=== PATIENT | female | born 1940 | race Caucasian/White ===

== ENCOUNTER → 2016-11-11 | Outpatient (CLI) | payer MEDICARE, BC | LOC: MW.LAB 11:09 | PROVIDERS: ATTEND Obstetrics & Gynecology | DX: C54.9 Malignant neoplasm of corpus uteri, unspecified (principal) | CPT/HCPCS: 36415; 82565; 84520; 86304 ==

== ENCOUNTER → 2016-11-12 | Outpatient (CLI) | payer MEDICARE, BC ==
[~2016-11-12] MED LIST: Iopamidol 755 MG/ML 500 ML Multipack Bottle IVPUSH STA
--- NOTE | 2016-11-13 17:37 | CT ---
EXAM DATE: 11/12/16 PATIENT'S AGE: 76 Patient: DON MCGINNIS Facility: [place], [place] Site . Site : 1940 Study: CT Abdomen/Pelvis W CONT [id number] 12:06:31 PM Ordering Physician: Deandre Puentes Final Report: INDICATION: Follow up of uterine carcinoma. TECHNIQUE: Volumetric helical scanning of the abdomen and pelvis was performed with oral contrast material and 75 cc of Isovue 370 contrast material IV. Coronal and sagittal reconstructions were obtained. COMPARISON: Abdomen/pelvis CT of 08/28/2016. FINDINGS: : Postop changes of total abdominal hysterectomy are again demonstrated. No peritoneal mass or free fluid is evident. The liver is normal in size, shape and attenuation. Post op changes of cholecystectomy are demonstrated. No bile duct dilation is evident. The spleen, adrenal glands and pancreas are within normal limits. The kidneys are unremarkable except for a 1.8 cm right renal parenchymal cyst. No lymphadenopathy is evident. The bowel is unremarkable. No free fluid is evident. The lung bases are clear. The heart is normal in size. IMPRESSION: 1. Post total abdominal hysterectomy. No evidence of recurrent/metastatic disease. 2. Post cholecystectomy. 3. 1.8 cm right renal cyst. Dictated by Steven Bonilla MD @ Nov 13 2016 3:22PM (Electronic Signature) Report Signed by Proxy and Original Signed Document filed in the Medical Record. [facility]
== END ==
LOC: MW.DI 09:20
PROVIDERS: ATTEND Obstetrics & Gynecology
DX: C54.9 Malignant neoplasm of corpus uteri, unspecified (principal); R10.9 Unspecified abdominal pain; Z90.710 Acquired absence of both cervix and uterus; Z90.49 Acquired absence of other specified parts of digestive tract; N28.1 Cyst of kidney, acquired
CPT/HCPCS: 74177; Q9967

== ENCOUNTER → 2016-12-11 | Outpatient (CLI) | payer MEDICARE, BC | LOC: MW.CHGS 08:00 | PROVIDERS: ATTEND Surgery | DX: L72.3 Sebaceous cyst (principal) | CPT/HCPCS: G0463 ==

== ENCOUNTER 2016-12-23 08:55 | Day surgery (SDC) | payer MEDICARE, BC ==
[~2016-12-23 08:55] MED LIST changes: +Clindamycin Phosphate in D5W 300 MG in Premix Bag 1 BAG IV ONE; -Iopamidol 755 MG/ML 500 ML Multipack Bottle IVPUSH STA; +Lactated Ringers 1,000 ML IV SCH; +Sodium Chloride 0.9% 10 ML Syringe FLUSH PRN; +Sodium Chloride 0.9% 2.5 ML Syringe FLUSH PRN
--- NOTE | 2016-12-23 09:25 | PCM.PREANE ---
Preanesthetic Assessment - Anesthesia/Transfusion/Family Hx Anesthesia History: Prior Anesthesia Without Reaction Other Type of Anesthesia Reaction Comment: difficult intubation Family History of Anesthesia Reaction: No Transfusion History: No Prior Transfusion(s) Intubation History: History of Difficulty Intubation - Review of Systems General: No Symptoms Pulmonary: No Symptoms Cardiovascular: No Symptoms Gastrointestinal: No symptoms Neurological: No Symptoms Other: Reports: None - Physical Assessment Height: 1.57 m Weight: 58.06 kg ASA Class: 3 Mental Status: Alert & Oriented x3 Airway Class: Mallampati = 4 Dentition: Reports: Normal Dentition Thyro-Mental Finger Breadths: 2 Mouth Opening Finger Breadths: 2 ROM/Head Extension: Limited/Partial Lungs: Clear to auscultation, Normal respiratory effort Cardiovascular: Regular Rate, Regular Rhythm - Allergies Allergies/Adverse Reactions: Allergies Allergy/AdvReac Type Severity Reaction Status Date / Time Penicillins Allergy Rash Verified 10/09/16 08:34 Sulfa (Sulfonamide Allergy Abdominal Verified 10/09/16 08:33 Antibiotics) Pain Difficult Intubation Allergy Other Uncoded 10/15/16 07:09 - Blood Blood Available: No - Anesthesia Plan Pre-Op Medication Ordered: None Beta Nuris: Atenolol Med Last Dose Date: 12/23/16 Med Last Dose Time: 05:30 - Acknowledgements Anesthesia Type Planned: MAC Pt an Appropriate Candidate for the Planned Anesthesia: Yes Alternatives and Risks of Anesthesia Discussed w Pt/Guardian: Yes Pt/Guardian Understands and Agrees with Anesthesia Plan: Yes PreAnesthesia Questionnaire HEENT History: Reports: Cataract, Hard of hearing, Other (see below) Other HEENT History: rolanda hearing aids, titanium implant to left ear, wears glasses Cardiovascular History: Reports: Heart Failure (with preserved ejection graction HFpEF 02/19, cardiac angiogram 08/21 in [place] was ok per patient), High cholesterol, Hypertension, Other (see below) Other Cardiovascular History: Aortic valve calcification per Dr. 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 (see below) Other OB/BYN History: CA of uterus 2013, chemo, radiation, hysterectomy Musculoskeletal History: Reports: Fracture, Osteoporosis Neurological History: Reports: Neuropathy, peripheral Endocrine/Metabolic History: Reports: None Oncologic (Cancer) History: Reports: Uterine Other Oncologic History: endometrial cancer and also found in 1 lymph node, treated with chemo and radiation - Infectious Disease History Infectious Disease History: Reports: Chicken pox, Measles - Past Surgical History Head Surgeries/Procedures: Reports: None HEENT Surgical History: Reports: Cataract surgery, Tonsillectomy Other HEENT Surgeries/Procedures: left ear surgery with implant Cardiovascular Surgical History: Reports: None Respiratory Surgical History: Reports: None GI Surgical History: Reports: Cholecystectomy, Colonoscopy Female Surgical History: Reports: Hysterectomy Other Musculoskeletal Surgeries/Procedures:: ORIF of left ankle fx. with subsequat hardware removal - SUBSTANCE USE Smoking Status *Q: Never Smoker Second Hand Smoke Exposure: No Recreational Drug Use History: No - HOME MEDS Home Medications: Home Meds Atenolol [Tenormin] 50 mg PO BRK 05/22/14 [History] Calcium Carbonate [Calcium] 1 tab PO BID 05/22/14 [History] Cholecalciferol (Vitamin D3) [Vitamin D] 5,000 units PO DAILY 05/22/14 [History] Denosumab [Prolia] 1 ml INJECT ASDIRECTED 05/22/14 [History] Fluticasone/Salmeterol [Advair 100-50 Diskus] 1 inh INH BID 05/22/14 [History] amLODIPine Besylate [Amlodipine Besylate] 5 mg PO BRK 05/22/14 [History] atorvaSTATin [Lipitor] 40 mg PO BEDTIME 05/22/14 [History] Pyridoxine HCl [Vitamin B-6] 100 mg PO DAILY 02/24/16 [History] Furosemide 20 mg PO DAILY 10/09/16 [History] Lisinopril 10 mg PO DAILY 10/09/16 [History] Potassium Chloride 10 meq PO DAILY 10/09/16 [History] - CURRENT (IN HOUSE) MEDS Current Meds: Current Medications Lactated Ringer's (Ringers, Lactated) 1,000 mls @ 125 mls/hr IV ASDIRECTED LASHAY Sodium Chloride (Saline Flush) 10 ml FLUSH ASDIRECTED PRN PRN Reason: Keep Vein Open Sodium Chloride (Saline Flush) 2.5 ml FLUSH ASDIRECTED PRN PRN Reason: Keep Vein Open Discontinued Medications Clindamycin Phosphate 300 mg/ (Premix) 50 mls @ 150 mls/hr IV ONETIME ONE Stop: 12/21/16 09:55 Clindamycin Phosphate 300 mg/ (Premix) 50 mls @ 150 mls/hr IV ONETIME ONE Stop: 12/23/16 07:49
[2016-12-23] MEDS ORDERED: fentaNYL 100 MCG/2 ML SDV ONE (09:40)
[2016-12-23] MEDS ORDERED: Midazolam 1 MG/ML 2 ML SDV ONE (09:40)
[2016-12-23] MEDS ORDERED: Bupivacaine 0.5% 30 ML SDV ONE (10:37)
[2016-12-23] MEDS ORDERED: Lidocaine 1% 20 ML MDV ONE (10:37)
[2016-12-23] MEDS ORDERED: Octyl 2-Cyanoacrylate 1 Tube ONE (11:16)
--- NOTE | 2016-12-23 11:29 | PCM.OPNOTE ---
- General Post-Op/Procedure Note Date of Surgery/Procedure: 12/23/16 Operative Procedure(s): Right neck mass excision Findings: Right neck mass Pre Op Diagnosis: Right neck mass Post-Op Diagnosis: same Anesthesia Technique: General ET tube Primary Surgeon: Cathy Maxwell Pathology: right neck mass Fluid Replacement, Intraop: 500 Condition: Good
--- NOTE | 2016-12-23 11:53 | PCM48HPAN ---
Post Anesthesia Note - EVALUATION WITHIN 48HRS OF ANESTHETIC Vital Signs in Normal Range: Yes Patient Participated in Evaluation: Yes Respiratory Function Stable: Yes Airway Patent: Yes Cardiovascular Function Stable: Yes Hydration Status Stable: Yes Pain Control Satisfactory: Yes Nausea and Vomiting Control Satisfactory: Yes Mental Status Recovered: Yes - COMMENTS/OBSERVATIONS Free Text/Narrative:: no anesthesia problems. Patient skipped recovery room phase of postoperative care.
[2016-12-23 13:05] VITALS: BP 124/57
--- NOTE | 2016-12-23 20:15 | OR ---
SURGEON: JAYLEN DANG MD DATE OF PROCEDURE: 12/23/2016 PREOPERATIVE DIAGNOSIS: Right neck mass. POSTOPERATIVE DIAGNOSIS: Right neck mass. PROCEDURE PERFORMED: Excision, right neck mass. ANESTHESIA: MAC. FLUIDS: 500 mL crystalloid. ESTIMATED BLOOD LOSS: 2 mL. PATHOLOGY: Right neck mass. FINDINGS: 1.5 x 1.5 cm right neck mass over the mid body portion of the SCM. COMPLICATIONS: None. INDICATIONS: The patient is a 76-year-old female who has had a right neck mass present for many years. She has been told this is a sebaceous cyst as it will become infected, drain, and then refill again. The patient has been bothered by this as it raise along the collar of her shirts and coats. The patient would like to have it removed. The patient and I discussed excision of the right neck mass. We discussed the procedure as well as expected perioperative course. We discussed the risks, including bleeding, infection, and damage to surrounding structures. The patient verbalized understanding and wished to proceed. PROCEDURE IN DETAIL: The patient was brought into the operating room and placed in the beach chair position. A time-out was completed verifying the patient's name, age, date of , allergies, and procedure to be performed. Monitored anesthesia care was induced. The neck and right chest were prepped and draped in the usual standard fashion. The area underneath the mass was then injected with 1% lidocaine plain. An elliptical incision was made along the skin lines around the mass down to the subcutaneous fat. Using electric cautery, I then removed the overlying skin and mass. This was sent to Pathology labeled as right neck mass. Hemostasis was achieved with cautery. The wound was then closed with interrupted 3-0 Vicryl within the subcutaneous tissues and a running 4-0 Monocryl suture along the skin. Dermabond was applied as well as a sterile dressing. Counts were complete and correct at the end of the case. The patient tolerated the procedure well and was taken to PACU in stable condition. RANI CARR /[id number]
== END 2016-12-23 11:58 | disposition home or self-care (01) ==
LOC: MW.SDS 08:55
PROVIDERS: ATTEND Surgery
PROC: 0JB40ZZ Excision of Right Neck Subcutaneous Tissue and Fascia, Open Approach (ICD-10-PCS; principal; 2016-12-23)
DX: L72.0 Epidermal cyst (principal); I11.0 Hypertensive heart disease with heart failure; I50.9 Heart failure, unspecified; J45.909 Unspecified asthma, uncomplicated; K21.9 Gastro-esophageal reflux disease without esophagitis; E78.00 Pure hypercholesterolemia, unspecified; M81.0 Age-related osteoporosis without current pathological fracture; G62.9 Polyneuropathy, unspecified; Z85.42 Personal history of malignant neoplasm of other parts of uterus; Z87.440 Personal history of urinary (tract) infections; Z87.01 Personal history of pneumonia (recurrent); Z92.21 Personal history of antineoplastic chemotherapy; Z92.3 Personal history of irradiation; Z88.0 Allergy status to penicillin; Z88.2 Allergy status to sulfonamides; Z79.51 Long term (current) use of inhaled steroids; Z79.899 Other long term (current) drug therapy; Z98.49 Cataract extraction status, unspecified eye; Z90.49 Acquired absence of other specified parts of digestive tract; Z90.710 Acquired absence of both cervix and uterus; Z90.89 Acquired absence of other organs; Z98.890 Other specified postprocedural states
CPT/HCPCS: 11422; A9270; J2250; J3010; J7120; 00300; 88304

== ENCOUNTER → 2017-01-04 | Outpatient (CLI) | payer MEDICARE, BC | LOC: MW.CHIM 08:00 | PROVIDERS: ATTEND Internal Medicine | DX: I50.30 Unspecified diastolic (congestive) heart failure (principal); I10 Essential (primary) hypertension; E78.00 Pure hypercholesterolemia, unspecified; Z85.42 Personal history of malignant neoplasm of other parts of uterus | CPT/HCPCS: 99214 ==

== ENCOUNTER → 2017-01-26 | Outpatient (CLI) | payer MEDICARE, BC | LOC: MW.CHFP 08:00 | PROVIDERS: ATTEND Nurse Practitioner Family | DX: M81.0 Age-related osteoporosis without current pathological fracture (principal) | CPT/HCPCS: 96372; J0897 ==

== ENCOUNTER 2017-07-13 19:12 | Observation (INO) | payer MEDICARE, BC ==
[2017-07-13] MEDS ORDERED: Sodium Chloride 0.9% 1,000 ML IV ONE (19:34)
[2017-07-13] MEDS ORDERED: Ondansetron 4 MG/2 ML SDV IVPUSH ONE (19:34)
--- NOTE | 2017-07-13 19:44 | EDM.PDOC ---
ED HPI GENERAL MEDICAL PROBLEM - General Chief Complaint: Gastrointestinal Problem Stated Complaint: PT SICK Time Seen by Provider: 07/13/17 19:25 Source of Information: Reports: Patient History Limitations: Reports: No Limitations - History of Present Illness INITIAL COMMENTS - FREE TEXT/NARRATIVE: HISTORY AND PHYSICAL: History of present illness: Patient is a 77-year-old female who presents to the emergency room today via [facility] with complaints of nausea and vomiting. States symptoms started at approximately 4 PM. She reports that she was taking out the trash and she walked back to her recliner she started to feel dizzy and light headed so she sat down. Soon after she became nauseated and went to stand up to walk to the bathroom and felt as if she were going to pass out, and her heart began to race. She did end up vomiting on herself multiple times because whens he tried to stand, she felt she would pass out. She called 911 for assistance at this time. EMS did start an IV and gave her 4 mg of Zofran prior to arrival. Her current complaint is the nausea and dizziness with ambulation. She denies any abdominal pain, diarrhea, dysuria, chest pain, shortness of breath or flank pain. Patient has a past medical history of asthma, hypertension, elevated cholesterol , leaking aortic valve which she sees Dr. Anderson in [place] (last seen May 06, 2017), and uterine cancer which she sees a provider in [place] ( last seen May 18, 2017). Review of systems: As per history of present illness and below otherwise all systems reviewed and negative. Past medical history: As per history of present illness and as reviewed below otherwise noncontributory. Surgical history: As per history of present illness and as reviewed below otherwise noncontributory. Social history: No reported history of drug or alcohol abuse. Family history: As per history of present illness and as reviewed below otherwise noncontributory. Physical exam: Gen.: Nontoxic appearing 77-year-old female. Alert and oriented. Able to speak in full sentences without shortness of breath. HEENT: Atraumatic, normocephalic, pupils reactive, negative for conjunctival pallor or scleral icterus, mucous membranes moist, throat clear, neck supple, nontender, trachea midline. Lungs: Clear to auscultation, breath sounds equal bilaterally, chest nontender. Breathing is easy and even. Heart: S1S2, regular rate and rhythm. Abdomen: Soft, nondistended, nontender. Negative for masses or hepatosplenomegaly. Negative for costovertebral tenderness. Pelvis: Stable nontender. Genitourinary: Deferred. Rectal: Deferred. Extremities: Atraumatic, negative for cords or calf pain. Neurovascular unremarkable. She was able to ambulate with standby assistance to the bathroom without difficulty. Gait was steady. Neuro: Awake, alert, oriented. Cranial nerves II through XII unremarkable. Cerebellum unremarkable. Motor and sensory unremarkable throughout. Exam nonfocal. Reviewed the lab and imaging findings with the patient. Dr. Patel was consulted on this case and is agreeable to admit patient for observation. Patient was made aware and is agreeable to stay overnight. Denies any further questions at this time. Diagnostics: CBC, CMP, troponin, EKG, UA, 1 view chest Therapeutics: IV fluid, Zofran Impression: Pancreatitis Plan: Observation admission to [facility] per Dr. Patel Definitive disposition and diagnosis as appropriate pending reevaluation and review of above. 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 denies any pain Pain Score (Numeric/FACES): 0 - Related Data Allergies Allergy/AdvReac Type Severity Reaction Status Date / Time Penicillins Allergy Rash Verified 07/13/17 19:16 Sulfa (Sulfonamide Allergy Abdominal Verified 07/13/17 19:16 Antibiotics) Pain Difficult Intubation Allergy Other Uncoded 07/13/17 19:16 Home Meds: Home Meds Atenolol [Tenormin] 50 mg PO BRK 05/22/14 [History] Calcium Carbonate [Calcium] 1 tab PO BID 05/22/14 [History] Cholecalciferol (Vitamin D3) [Vitamin D] 5,000 units PO DAILY 05/22/14 [History] Denosumab [Prolia] 1 ml INJECT ASDIRECTED 05/22/14 [History] Fluticasone/Salmeterol [Advair 100-50 Diskus] 1 inh INH BID 05/22/14 [History] amLODIPine Besylate [Amlodipine Besylate] 5 mg PO BRK 05/22/14 [History] atorvaSTATin [Lipitor] 40 mg PO BEDTIME 05/22/14 [History] Pyridoxine HCl [Vitamin B-6] 100 mg PO DAILY 02/24/16 [History] Furosemide 20 mg PO DAILY 10/09/16 [History] Lisinopril 10 mg PO DAILY 10/09/16 [History] Potassium Chloride 10 meq PO DAILY 10/09/16 [History] Past Medical History HEENT History: Reports: Cataract, Hard of Hearing, Other (See Below) Other HEENT History: rolanda hearing aids, titanium implant to left ear, wears glasses Cardiovascular History: Reports: Heart Failure, High Cholesterol, Hypertension, Other (See Below) Other Cardiovascular History: Aortic valve calcification per Dr. 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 (See Below) Other OB/BYN History: CA of uterus 2013, chemo, radiation, hysterectomy Musculoskeletal History: Reports: Fracture, Osteoporosis Neurological History: Reports: Neuropathy, Peripheral Endocrine/Metabolic History: Reports: None Oncologic (Cancer) History: Reports: Uterine Other Oncologic History: endometrial cancer and also found in 1 lymph node, treated with chemo and radiation - Infectious Disease History Infectious Disease History: Reports: Chicken Pox, Measles - Past Surgical History HEENT Surgical History: Reports: Cataract Surgery, Tonsillectomy Social & Family History - Family History Family Medical History: Noncontributory - Tobacco Use Smoking Status *Q: Never Smoker Second Hand Smoke Exposure: No - Caffeine Use Caffeine Use: Reports: None - Recreational Drug Use Recreational Drug Use: No ED ROS GENERAL - Review of Systems Review Of Systems: ROS reveals no pertinent complaints other than HPI. ED EXAM, GI/ABD - Physical Exam Exam: See Below (See dictation) EKG INTERPRETATION EKG Date: 07/13/17 Time: 19:50 Rhythm: NSR Rate (Beats/Min): 70 EKG Interpretation Comments: Reviewed by Dr Russell and myself Course - Vital Signs Last Recorded V/S: Last Vital Signs Temp 36.4 C 07/13/17 19:16 Pulse 84 07/13/17 19:16 Resp 32 H 07/13/17 19:16 BP 123/76 07/13/17 19:16 Pulse Ox 100 07/13/17 19:16 - Orders/Labs/Meds Orders: Active Orders 24 hr Category Date Time Status Admission Status [Patient Status] [ADT] Stat ADT 07/13/17 20:47 Active EKG Documentation Completion [RC] STAT Care 07/13/17 19:36 Active Orthostatic Vital Signs [RC] ASDIRECTED Care 07/13/17 19:49 Active Chest 1V Frontal [CR] Stat Exams 07/13/17 19:36 Taken Head wo Cont [CT] Stat Exams 07/13/17 19:58 Taken UA W/MICROSCOPIC [URIN] Stat Lab 07/13/17 19:34 Uncollected Labs: Laboratory Tests 07/13/17 07/13/17 07/13/17 Range/Units 19:54 19:54 19:54 WBC 8.10 (4.0-11.0) K/uL RBC 3.81 L (4.30-5.90) M/uL Hgb 12.4 (12.0-16.0) g/dL Hct 35.8 L (36.0-46.0) % MCV 94.0 (80.0-98.0) fL MCH 32.5 H (27.0-32.0) pg MCHC 34.6 (31.0-37.0) g/dL RDW Std Deviation 43.1 (28.0-62.0) fl RDW Coeff of Miracle 13 (11.0-15.0) % Plt Count 186 (150-400) K/uL MPV 10.30 (7.40-12.00) fL Neut % (Auto) 80.9 H (48.0-80.0) % Lymph % (Auto) 11.2 L (16.0-40.0) % Preston % (Auto) 6.7 (0.0-15.0) % Eos % (Auto) 1.0 (0.0-7.0) % Baso % (Auto) 0.2 (0.0-1.5) % Neut # (Auto) 6.6 H (1.4-5.7) K/uL Lymph # (Auto) 0.9 (0.6-2.4) K/uL Preston # (Auto) 0.5 (0.0-0.8) K/uL Eos # (Auto) 0.1 (0.0-0.7) K/uL Baso # (Auto) 0.0 (0.0-0.1) K/uL Nucleated RBC % 0.0 /100WBC Nucleated RBCs # 0 K/uL Sodium 142 (136-146) mmol/L Potassium 3.4 L (3.5-5.1) mmol/L Chloride 109 (98-110) mmol/L Carbon Dioxide 22 (21-31) mmol/L BUN 21 (6.0-23.0) mg/dL Creatinine 0.8 (0.6-1.5) mg/dL Est Cr Clr Drug Dosing TNP Estimated GFR (MDRD) > 60.0 ml/min Glucose 110 (60-110) mg/dL Calcium 9.2 (8.8-10.8) mg/dL Total Bilirubin 1.2 (0.1-1.5) mg/dL AST 27 (5-40) IU/L ALT 26 (8-54) IU/L Alkaline Phosphatase 49 (40-150) Troponin I < 0.10 (0.0-0.29) NG/ML Total Protein 6.1 (6.0-8.0) g/dL Albumin 3.8 (3.4-4.8) g/dL Globulin 2.3 (2.0-3.5) g/dL Albumin/Globulin Ratio 1.7 (1.3-2.8) Amylase 140 H (10-90) U/L Lipase 364 H (7-80) U/L Meds: Medications Discontinued Medications Generic Name Dose Route Start Last Admin Trade Name Freq PRN Reason Stop Dose Admin Sodium Chloride 1,000 mls @ 999 mls/hr 07/13/17 19:34 07/13/17 19:47 Normal Saline IV 07/13/17 20:34 999 mls/hr STAT ONE Administration Ondansetron HCl 4 mg 07/13/17 19:34 07/13/17 19:48 Zofran IVPUSH 07/13/17 19:35 4 mg ONETIME ONE Administration Departure - Departure Time of Disposition: 20:56 Disposition: Refer to Observation Condition: Good Clinical Impression: Pancreatitis Qualifiers: Chronicity: acute Pancreatitis type: unspecified pancreatitis type Acute pancreatitis complication: unspecified Qualified Code(s): K85.90 - Acute pancreatitis without necrosis or infection, unspecified - Discharge Information Forms: ED Department Discharge - My Orders Last 24 Hours: My Active Orders 07/13/17 19:34 UA W/MICROSCOPIC [URIN] Stat 07/13/17 19:36 EKG Documentation Completion [RC] STAT Chest 1V Frontal [CR] Stat 07/13/17 19:49 Orthostatic Vital Signs [RC] ASDIRECTED 07/13/17 19:58 Head wo Cont [CT] Stat 07/13/17 20:47 Admission Status [Patient Status] [ADT] Stat - Assessment/Plan Last 24 Hours: My Active Orders 07/13/17 19:34 UA W/MICROSCOPIC [URIN] Stat 07/13/17 19:36 EKG Documentation Completion [RC] STAT Chest 1V Frontal [CR] Stat 07/13/17 19:49 Orthostatic Vital Signs [RC] ASDIRECTED 07/13/17 19:58 Head wo Cont [CT] Stat 07/13/17 20:47 Admission Status [Patient Status] [ADT] Stat
[2017-07-13 20:22] LABS: CHLORIDE,CL 109 mmol/L (98-110); SODIUM,NA 142 mmol/L (136-146)
[2017-07-13] MEDS ORDERED: Albuterol/Ipratropium 3.0-0.5 MG/3 ML Neb Soln NEB PRN (21:02)
[2017-07-13] MEDS ORDERED: Ondansetron 8 MG Tab.DIS PO PRN (21:02)
[2017-07-13] MEDS ORDERED: Docusate Sodium 100 MG Cap PO PRN (21:02)
[2017-07-13] MEDS ORDERED: Morphine 2 MG/ML Syringe IVPUSH PRN (21:02)
[2017-07-13] MEDS ORDERED: oxyCODONE 5 MG Tab PO PRN (21:02)
[2017-07-13] MEDS ORDERED: Acetaminophen 325 MG Tab PO PRN (21:02)
[2017-07-13] MEDS: Sodium Chloride 0.9% 1,000 ML IV SCH (22:20)
[2017-07-13] MEDS ORDERED: Fluticasone/Salmeterol 100-50 MCG Inhalation Powder 14/Diskus INH SCH (22:42)
[2017-07-14 05:43] LABS: CHLORIDE,CL 115 mmol/L (98-110); SODIUM,NA 145 mmol/L (136-146)
[2017-07-14] MEDS: Sodium Chloride 0.9% 1,000 ML IV SCH ×3 (06:29→23:20)
[2017-07-14] MEDS: Enoxaparin 30 MG/0.3 ML Syringe SUBCUT SCH (08:52)
[2017-07-14] MEDS: SALMETEROL INH SCH ×2 (08:52→20:48)
[2017-07-14] MEDS: FLUTICASONE INH SCH ×2 (08:52→20:48)
--- NOTE | 2017-07-14 10:17 | PCM.HP ---
<Damion Edouard - Last Filed: 07/14/17 10:11> H&P History of Present Illness - General Date of Service: 07/14/17 Admit Problem/Dx: Admission Diagnosis/Problem Admission Diagnosis/Problem Pancreatitis Source of Information: Patient History Limitations: Reports: No Limitations - History of Present Illness Initial Comments - Free Text/Narative: [id number] with history of cholecystectomy, CHF, HTN presents to the ER with a chief complaint of dizziness. As per the patient, she had an episode of dizziness while standing yesterday afternoon that had her really worried. She states she was worried that she may fall so took a seat immediately and called 911. She denies syncope, nausea, vomiting. She denies having a similar episode in the past. She has been eating and drinking fluids normally. No other complaints. Denies abdominal pain. Denies recent travel. ER Course: CMP indicates a lipase of 364, amylase of 140. IV 4mg Zofran once Upper Abdomen Pain Score (Numeric/FACES): 4 denies any pain Pain Score (Numeric/FACES): 0 - Related Data Allergies/Adverse Reactions: Allergies Allergy/AdvReac Type Severity Reaction Status Date / Time Penicillins Allergy Rash Verified 07/13/17 19:16 Sulfa (Sulfonamide Allergy Abdominal Verified 07/13/17 19:16 Antibiotics) Pain Difficult Intubation Allergy Other Uncoded 07/13/17 19:16 Home Medications: Home Meds Atenolol [Tenormin] 50 mg PO BRK 05/22/14 [History] Calcium Carbonate [Calcium] 1 tab PO BID 05/22/14 [History] Cholecalciferol (Vitamin D3) [Vitamin D] 5,000 units PO DAILY 05/22/14 [History] Denosumab [Prolia] 1 ml INJECT ASDIRECTED 05/22/14 [History] Fluticasone/Salmeterol [Advair 100-50 Diskus] 1 inh INH BID 05/22/14 [History] amLODIPine Besylate [Amlodipine Besylate] 5 mg PO BRK 05/22/14 [History] atorvaSTATin [Lipitor] 40 mg PO BEDTIME 05/22/14 [History] Furosemide 20 mg PO DAILY 10/09/16 [History] Lisinopril 10 mg PO DAILY 10/09/16 [History] Potassium Chloride 10 meq PO DAILY 10/09/16 [History] Past Medical History HEENT History: Reports: Cataract, Hard of Hearing, Other (See Below) Other HEENT History: [place] hearing aids, titanium implant to left ear, wears glasses Cardiovascular History: Reports: Heart Failure, High Cholesterol, Hypertension, Other (See Below) Other Cardiovascular History: Aortic valve calcification per Dr. 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 (See Below) Other OB/BYN History: CA of uterus 2014, chemo, radiation, hysterectomy Musculoskeletal History: Reports: Fracture, Osteoporosis Neurological History: Reports: Neuropathy, Peripheral Psychiatric History: Reports: None Endocrine/Metabolic History: Reports: None Hematologic History: Reports: None Immunologic History: Reports: None Oncologic (Cancer) History: Reports: Uterine Other Oncologic History: endometrial cancer and also found in 1 lymph node, treated with chemo and radiation Dermatologic History: Reports: None - Infectious Disease History Infectious Disease History: Reports: Chicken Pox, Measles - Past Surgical History Head Surgeries/Procedures: Reports: None HEENT Surgical History: Reports: Cataract Surgery, Tonsillectomy Respiratory Surgical History: Reports: None GI Surgical History: Reports: Cholecystectomy Female Surgical History: Reports: Hysterectomy Social & Family History - Family History Family Medical History: Noncontributory - Tobacco Use Smoking Status *Q: Never Smoker Second Hand Smoke Exposure: No - Caffeine Use Caffeine Use: Reports: None - Recreational Drug Use Recreational Drug Use: No H&P Review of Systems - Review of Systems: Review Of Systems: See Below General: Reports: Other (lightheaded, dizzy) HEENT: Reports: No Symptoms Pulmonary: Reports: No Symptoms Cardiovascular: Reports: No Symptoms Gastrointestinal: Reports: Nausea. Denies: Abdominal Pain, Black Stool, Bloody Stool, Constipation, Diarrhea, Decreased Appetite, Distension Genitourinary: Reports: No Symptoms Musculoskeletal: Reports: No Symptoms Skin: Reports: No Symptoms Psychiatric: Reports: No Symptoms Neurological: Reports: No Symptoms Hematologic/Lymphatic: Reports: No Symptoms Immunologic: Reports: No Symptoms Exam - Exam Exam: See Below - Vital Signs Vital Signs: Last Vital Signs Temp 37.2 C 07/14/17 08:00 Pulse 72 07/14/17 08:00 Resp 20 07/14/17 08:00 BP 126/58 L 07/14/17 08:00 Pulse Ox 95 07/14/17 08:00 Weight: 63.2 kg - Exam General: Alert, Oriented HEENT: Conjunctiva Clear, EOMI Neck: Supple, Trachea Midline Lungs: Clear to Auscultation, Normal Respiratory Effort Cardiovascular: Regular Rate, Regular Rhythm GI/Abdominal Exam: Other (mild tenderness to palpation in the RUQ. No rebound, no distention. No shifting dullness. ) Back Exam: Normal Inspection. No: CVA Tenderness (L), CVA Tenderness (R) Extremities: Normal Inspection, Normal Range of Motion, Non-Tender, No Pedal Edema, Normal Capillary Refill Peripheral Pulses: 2+: Dorsalis Pedis (L), Dorsalis Pedis (R) Skin: Warm, Intact Neuro Extensive - Mental Status: Alert, Oriented x3, Normal Mood/Affect, Normal Cognition, Memory Intact Neuro Extensive - Motor, Sensory, Reflexes: CN II-XII Intact, Normal Reflexes Psychiatric: Alert - Patient Data Lab Results Last 24 hrs: Laboratory Results - last 24 hr 07/13/17 07/14/17 07/14/17 Range/Units 22:55 04:51 04:51 WBC 9.58 (4.0-11.0) K/uL RBC 3.65 L (4.30-5.90) M/uL Hgb 11.8 L (12.0-16.0) g/dL Hct 34.7 L (36.0-46.0) % MCV 95.1 (80.0-98.0) fL MCH 32.3 H (27.0-32.0) pg MCHC 34.0 (31.0-37.0) g/dL RDW Std Deviation 44.5 (28.0-62.0) fl RDW Coeff of Miracle 13 (11.0-15.0) % Plt Count 194 (150-400) K/uL MPV 10.50 (7.40-12.00) fL Neut % (Auto) 78.2 (48.0-80.0) % Lymph % (Auto) 13.0 L (16.0-40.0) % [place] % (Auto) 8.0 (0.0-15.0) % Eos % (Auto) 0.5 (0.0-7.0) % Baso % (Auto) 0.3 (0.0-1.5) % Neut # (Auto) 7.5 H (1.4-5.7) K/uL Lymph # (Auto) 1.3 (0.6-2.4) K/uL [place] # (Auto) 0.8 (0.0-0.8) K/uL Eos # (Auto) 0.1 (0.0-0.7) K/uL Baso # (Auto) 0.0 (0.0-0.1) K/uL Nucleated RBC % 0.0 /100WBC Nucleated RBCs # 0 K/uL Sodium 145 (136-146) mmol/L Potassium 3.6 (3.5-5.1) mmol/L Chloride 115 H (98-110) mmol/L Carbon Dioxide 23 (21-31) mmol/L BUN 17 (6.0-23.0) mg/dL Creatinine 0.7 (0.6-1.5) mg/dL Est Cr Clr Drug Dosing 52.01 mL/min Estimated GFR (MDRD) > 60.0 ml/min Glucose 95 (60-110) mg/dL Calcium 8.2 L (8.8-10.8) mg/dL Phosphorus 3.5 (2.4-4.7) mg/dL Magnesium 1.1 L (1.5-2.3) mEq/L Total Bilirubin 1.4 (0.1-1.5) mg/dL AST 23 (5-40) IU/L ALT 23 (8-54) IU/L Alkaline Phosphatase 48 (40-150) Total Protein 5.3 L (6.0-8.0) g/dL Albumin 3.6 (3.4-4.8) g/dL Globulin 1.7 L (2.0-3.5) g/dL Albumin/Globulin Ratio 2.1 (1.3-2.8) Triglycerides (10-190) mg/dL Cholesterol (131-240) mg/dL LDL Cholesterol, Calc (60-180) mg/dL VLDL Cholesterol (5-55) mg/dL HDL Cholesterol (40-80) mg/dL Cholesterol/HDL Ratio (3.3-6.0) Urine Color YELLOW Urine Appearance CLEAR Urine pH 7.5 (5.0-8.0) Ur Specific [place] 1.010 (1.001-1.035) Urine Protein NEGATIVE (NEGATIVE) mg/dL Urine Glucose (UA) NEGATIVE (NEGATIVE) mg/dL Urine Ketones NEGATIVE (NEGATIVE) mg/dL Urine Occult Blood NEGATIVE (NEGATIVE) Urine Nitrite NEGATIVE (NEGATIVE) Urine Bilirubin NEGATIVE (NEGATIVE) Urine Urobilinogen 0.2 (<2.0) EU/dL Ur Leukocyte Esterase NEGATIVE (NEGATIVE) Urine RBC 0-1 (0-2/HPF) Urine WBC 0-2 (0-5/HPF) Ur Epithelial Cells FEW (NONE-FEW) Urine Bacteria FEW (NEGATIVE) 07/14/17 Range/Units 09:08 WBC (4.0-11.0) K/uL RBC (4.30-5.90) M/uL Hgb (12.0-16.0) g/dL Hct (36.0-46.0) % MCV (80.0-98.0) fL MCH (27.0-32.0) pg MCHC (31.0-37.0) g/dL RDW Std Deviation (28.0-62.0) fl RDW Coeff of Miracle (11.0-15.0) % Plt Count (150-400) K/uL MPV (7.40-12.00) fL Neut % (Auto) (48.0-80.0) % Lymph % (Auto) (16.0-40.0) % [place] % (Auto) (0.0-15.0) % Eos % (Auto) (0.0-7.0) % Baso % (Auto) (0.0-1.5) % Neut # (Auto) (1.4-5.7) K/uL Lymph # (Auto) (0.6-2.4) K/uL [place] # (Auto) (0.0-0.8) K/uL Eos # (Auto) (0.0-0.7) K/uL Baso # (Auto) (0.0-0.1) K/uL Nucleated RBC % /100WBC Nucleated RBCs # K/uL Sodium (136-146) mmol/L Potassium (3.5-5.1) mmol/L Chloride (98-110) mmol/L Carbon Dioxide (21-31) mmol/L BUN (6.0-23.0) mg/dL Creatinine (0.6-1.5) mg/dL Est Cr Clr Drug Dosing mL/min Estimated GFR (MDRD) ml/min Glucose (60-110) mg/dL Calcium (8.8-10.8) mg/dL Phosphorus (2.4-4.7) mg/dL Magnesium (1.5-2.3) mEq/L Total Bilirubin (0.1-1.5) mg/dL AST (5-40) IU/L ALT (8-54) IU/L Alkaline Phosphatase (40-150) Total Protein (6.0-8.0) g/dL Albumin (3.4-4.8) g/dL Globulin (2.0-3.5) g/dL Albumin/Globulin Ratio (1.3-2.8) Triglycerides 76 (10-190) mg/dL Cholesterol 111 L (131-240) mg/dL LDL Cholesterol, Calc 60 (60-180) mg/dL VLDL Cholesterol 15 (5-55) mg/dL HDL Cholesterol 36 L (40-80) mg/dL Cholesterol/HDL Ratio 3.1 L (3.3-6.0) Urine Color Urine Appearance Urine pH (5.0-8.0) Ur Specific [place] (1.001-1.035) Urine Protein (NEGATIVE) mg/dL Urine Glucose (UA) (NEGATIVE) mg/dL Urine Ketones (NEGATIVE) mg/dL Urine Occult Blood (NEGATIVE) Urine Nitrite (NEGATIVE) Urine Bilirubin (NEGATIVE) Urine Urobilinogen (<2.0) EU/dL Ur Leukocyte Esterase (NEGATIVE) Urine RBC (0-2/HPF) Urine WBC (0-5/HPF) Ur Epithelial Cells (NONE-FEW) Urine Bacteria (NEGATIVE) Result Diagrams: 07/14/17 04:51 07/14/17 04:51 *Q Meaningful Use (ADM) - VTE *Q VTE Criteria *Q: - Stroke *Q Stroke Criteria *Q: - AMI *Q AMI Criteria *Q: Problem List Initiated/Reviewed/Updated: Yes Orders Last 24hrs: Active Orders 24 hr Category Date Time Status Patient Status [ADT] Routine ADT 07/13/17 21:02 Active Ambulate [RC] PER UNIT ROUTINE Care 07/13/17 21:04 Active Antiembolic Devices [RC] PER UNIT ROUTINE Care 07/13/17 21:06 Active Oxygen Therapy [RC] PRN Care 07/13/17 21:02 Active RT Aerosol Therapy [RC] ASDIRECTED Care 07/13/17 21:06 Active Up With Assistance [RC] ASDIRECTED Care 07/13/17 21:02 Active VTE/DVT Education [RC] PER UNIT ROUTINE Care 07/13/17 21:02 Active Vaccines to be Administered [RC] PER UNIT ROUTINE Care 07/13/17 21:06 Active Vital Signs [RC] Q4H Care 07/13/17 21:02 Active Clear Liquid Diet [DIET] Diet 07/14/17 Lunch Active Acetaminophen [Tylenol] Med 07/13/17 21:02 Active 650 mg PO Q4H PRN Albuterol/Ipratropium [DuoNeb 3.0-0.5 MG/3 ML] Med 07/13/17 21:02 Active 3 ml NEB Q4HRRT PRN Docusate Sodium [Colace] Med 07/13/17 21:02 Active 100 mg PO BID PRN Enoxaparin [Lovenox] Med 07/14/17 09:00 Active 30 mg SUBCUT DAILY Fluticasone/Salmeterol [Advair Diskus 100-50] Med 07/14/17 09:00 Active 1 puff INH BID Morphine Med 07/13/17 21:02 Active 2 mg IVPUSH Q2H PRN Ondansetron [Zofran ODT] Med 07/13/17 21:02 Active 8 mg PO Q6H PRN Sodium Chloride 0.9% [Normal Saline] 1,000 ml Med 07/13/17 21:15 Active IV ASDIRECTED oxyCODONE Med 07/13/17 21:02 Active 5 mg PO Q4H PRN GM Immunization Reflex [OM.PC] Click To Edit Oth 07/13/17 21:02 Ordered Sequential Compression Device [OM.PC] Per Unit Routine Oth 07/13/17 21:04 Ordered Resuscitation Status Routine Resus Stat 07/13/17 21:02 Ordered Medication Orders Acetaminophen (Tylenol) 650 mg PO Q4H PRN PRN Reason: Pain (Mild 1-3)/fever Albuterol/Ipratropium (Duoneb 3.0-0.5 Mg/3 Ml) 3 ml NEB Q4HRRT PRN PRN Reason: Shortness Of Breath/wheezing Docusate Sodium (Colace) 100 mg PO BID PRN PRN Reason: Constipation Enoxaparin Sodium (Lovenox) 30 mg SUBCUT DAILY [facility] Last Admin: 07/14/17 08:52 Dose: 30 mg Sodium Chloride (Normal Saline) 1,000 mls @ 125 mls/hr IV ASDIRECTED [facility] Last Admin: 07/14/17 06:29 Dose: 125 mls/hr Infusion: 07/14/17 06:20 Dose: 125 mls/hr Admin: 07/13/17 22:20 Dose: 125 mls/hr Morphine Sulfate (Morphine) 2 mg IVPUSH Q2H PRN PRN Reason: Pain (severe 7-10) Stop: 07/14/17 21:05 Ondansetron HCl (Zofran Odt) 8 mg PO Q6H PRN PRN Reason: nausea, able to take PO Oxycodone HCl (Oxycodone) 5 mg PO Q4H PRN PRN Reason: Pain (moderate 4-6) Fluticasone/Salmeterol (Advair Diskus 100-50) 1 puff INH BID [facility] Last Admin: 07/14/17 08:52 Dose: 1 puff Assessment/Plan Comment:: A: #1. Elevated lipase, amylase - possible pancreatitis #2. Nausea, dizziness, abdominal pain - mild/improved #3. History of cholecystectomy, asthma, CHF, HTN, uterine cancer, osteoporosis P: #1. Admit for observation. Vital signs per floor routine. I's and O's per floor routine. #1. Clear liquid diet as this patient is no longer complaining of abdominal pain or nausea and she feels ready to eat. #2. Zofran PRN 4mg q4hrs IV for nausea #3. Lipid panel #4. IVNS 125ml/hr <Geovanni Patel - Last Filed: 07/15/17 15:38> H&P History of Present Illness - General Admit Problem/Dx: Admission Diagnosis/Problem Admission Diagnosis/Problem Pancreatitis I performed a history and physical examination of the patient and I have discussed the management with the resident. I have reviewed the residents note and agree with the documented findings and plan of care Exam - Vital Signs Vital Signs: Last Vital Signs Temp 37.1 C 07/15/17 11:24 Pulse 67 07/15/17 11:24 Resp 20 07/15/17 11:24 BP 135/60 07/15/17 11:24 Pulse Ox 96 07/15/17 11:24 - Patient Data Lab Results Last 24 hrs: Laboratory Results - last 24 hr 07/15/17 07/15/17 Range/Units 04:52 04:52 WBC 5.60 (4.0-11.0) K/uL RBC 3.35 L (4.30-5.90) M/uL Hgb 10.7 L (12.0-16.0) g/dL Hct 32.2 L (36.0-46.0) % MCV 96.1 (80.0-98.0) fL MCH 31.9 (27.0-32.0) pg MCHC 33.2 (31.0-37.0) g/dL RDW Std Deviation 45.8 (28.0-62.0) fl RDW Coeff of Miracle 13 (11.0-15.0) % Plt Count 144 L (150-400) K/uL MPV 10.30 (7.40-12.00) fL Neut % (Auto) 65.7 (48.0-80.0) % Lymph % (Auto) 24.6 (16.0-40.0) % [place] % (Auto) 7.9 (0.0-15.0) % Eos % (Auto) 1.3 (0.0-7.0) % Baso % (Auto) 0.5 (0.0-1.5) % Neut # (Auto) 3.7 (1.4-5.7) K/uL Lymph # (Auto) 1.4 (0.6-2.4) K/uL [place] # (Auto) 0.4 (0.0-0.8) K/uL Eos # (Auto) 0.1 (0.0-0.7) K/uL Baso # (Auto) 0.0 (0.0-0.1) K/uL Nucleated RBC % 0.0 /100WBC Nucleated RBCs # 0 K/uL Sodium 144 (136-146) mmol/L Potassium 3.4 L (3.5-5.1) mmol/L Chloride 117 H (98-110) mmol/L Carbon Dioxide 21 (21-31) mmol/L BUN 11 (6.0-23.0) mg/dL Creatinine 0.6 (0.6-1.5) mg/dL Est Cr Clr Drug Dosing 60.68 mL/min Estimated GFR (MDRD) > 60.0 ml/min Glucose 87 (60-110) mg/dL Calcium 7.4 L (8.8-10.8) mg/dL Result Diagrams: 07/15/17 04:52 07/15/17 04:52 *Q Meaningful Use (ADM) - VTE *Q VTE Criteria *Q: - Stroke *Q Stroke Criteria *Q: - AMI *Q AMI Criteria *Q: Orders Last 24hrs: Active Orders 24 hr Category Date Time Status Regular Diet [DIET] Diet 07/15/17 Lunch Active Abdomen w Cont [MR] Routine Exams 07/15/17 08:19 Ordered Atenolol [Tenormin] Med 07/16/17 08:00 Active 50 mg PO BRK Furosemide [Lasix] Med 07/15/17 09:00 Active 20 mg PO DAILY Lisinopril [Prinivil] Med 07/15/17 09:00 Active 10 mg PO DAILY Potassium Chloride [Klor-Con 10] Med 07/15/17 09:00 Active 10 meq PO DAILY Potassium Chloride [Klor-Con M20] Med 07/15/17 08:15 Active 40 meq PO DAILY amLODIPine [Norvasc] Med 07/16/17 08:00 Active 5 mg PO BRK atorvaSTATin [Lipitor] Med 07/15/17 21:00 Active 40 mg PO BEDTIME Medication Orders Acetaminophen (Tylenol) 650 mg PO Q4H PRN PRN Reason: Pain (Mild 1-3)/fever Last Admin: 07/14/17 19:08 Dose: 650 mg Albuterol/Ipratropium (Duoneb 3.0-0.5 Mg/3 Ml) 3 ml NEB Q4HRRT PRN PRN Reason: Shortness Of Breath/wheezing Amlodipine Besylate (Norvasc) 5 mg PO BRK LASHAY Atenolol (Tenormin) 50 mg PO BRK LASHAY Atorvastatin Calcium (Lipitor) 40 mg PO BEDTIME LASHAY Docusate Sodium (Colace) 100 mg PO BID PRN PRN Reason: Constipation Enoxaparin Sodium (Lovenox) 30 mg SUBCUT DAILY [facility] Last Admin: 07/15/17 08:29 Dose: 30 mg Admin: 07/14/17 08:52 Dose: 30 mg Furosemide (Lasix) 20 mg PO DAILY [facility] Last Admin: 07/15/17 08:34 Dose: 20 mg Sodium Chloride (Normal Saline) 1,000 mls @ 125 mls/hr IV ASDIRECTED [facility] Last Admin: 07/15/17 07:35 Dose: 125 mls/hr Infusion: 07/15/17 07:20 Dose: 125 mls/hr Admin: 07/14/17 23:20 Dose: 125 mls/hr Infusion: 07/14/17 23:17 Dose: 125 mls/hr Admin: 07/14/17 14:57 Dose: 125 mls/hr Infusion: 07/14/17 14:29 Dose: 125 mls/hr Admin: 07/14/17 06:29 Dose: 125 mls/hr Infusion: 07/14/17 06:20 Dose: 125 mls/hr Admin: 07/13/17 22:20 Dose: 125 mls/hr Lisinopril (Prinivil) 10 mg PO DAILY [facility] Last Admin: 07/15/17 08:33 Dose: 10 mg Ondansetron HCl (Zofran Odt) 8 mg PO Q6H PRN PRN Reason: nausea, able to take PO Oxycodone HCl (Oxycodone) 5 mg PO Q4H PRN PRN Reason: Pain (moderate 4-6) Potassium Chloride (Klor-Con M20) 40 meq PO DAILY [facility] Last Admin: 07/15/17 09:41 Dose: Admin: 07/15/17 08:33 Dose: 40 meq Potassium Chloride (Klor-Con 10) 10 meq PO DAILY [facility] Last Admin: 07/15/17 08:34 Dose: 10 meq Fluticasone/Salmeterol (Advair Diskus 100-50) 1 puff INH BID [facility] Last Admin: 07/15/17 08:32 Dose: 1 puff Admin: 07/14/17 20:48 Dose: 1 puff Admin: 07/14/17 08:52 Dose: 1 puff
--- NOTE | 2017-07-14 14:43 | CR ---
EXAM DATE: 07/13/17 PATIENT'S AGE: 77 Patient: DON MCGINNIS Facility: [place], [place] Site . Site : 1940 Study: XRay Chest [id number] 8:39:38 PM Ordering Physician: Doctor Vásquez Final Report: INDICATION: Vomiting; near syncope. Comparison: Chest radiograph September 23, 2016. Technique: Portable AP chest radiograph. Findings: Normal size cardiac silhouette. Clear lung orr without evidence of acute pneumonic infiltrates or CHF. No pneumothorax or pleural effusion. No interval change. Impression: No acute pathology. Dictated by Xiang Smith MD @ Jul 13 2017 8:41PM (Electronic Signature) Report Signed by Proxy. ALAN
--- NOTE | 2017-07-14 14:44 | CT ---
EXAM DATE: 07/13/17 PATIENT'S AGE: 77 Patient: DON MCGINNIS Facility: [place], [place] Site . Site : 1940 Study: CT Head [id number] 8:40:04 PM Ordering Physician: Doctor Vásquez Final Report: INDICATION: Near syncope; vomiting. Technique: CT head without intravenous contrast; coronal and sagittal reformats. Findings: No intracranial hemorrhage. No mass lesions. No evidence of shift of the midline structures. The calvarium is unremarkable. chronic mucoperiosteal thickening posterior ethmoid cells bilateral as well as sphenoid sinuses; rule out chronic sinusitis. No fluid levels identified within the paranasal sinuses. The ventricular system, the subarachnoid cisterns and the cerebral sulci are unremarkable. Small periventricular low densities; rule out small vessel disease. Impression: 1. Chronic sinusitis involving the posterior ethmoid cells and sphenoid sinuses bilateral. 2. Small vessel disease. 3. No intracranial hemorrhage or mass lesions. 4. No evidence of shift of the midline structures. Please note that all CT scans at this facility use dose modulation, iterative reconstruction, and/or weight-based dosing when appropriate to reduce radiation dose to as low as reasonably achievable. Dictated by Xiang Smith MD @ Jul 13 2017 8:42PM (Electronic Signature) Report Signed by Proxy. ALAN
[2017-07-15 05:30] LABS: CHLORIDE,CL 117 mmol/L (98-110); SODIUM,NA 144 mmol/L (136-146)
[2017-07-15] MEDS: Sodium Chloride 0.9% 1,000 ML IV SCH ×2 (07:35→23:41)
[2017-07-15] MEDS: Enoxaparin 30 MG/0.3 ML Syringe SUBCUT SCH (08:29)
[2017-07-15] MEDS: FLUTICASONE INH SCH ×2 (08:32→21:04)
[2017-07-15] MEDS: SALMETEROL INH SCH ×2 (08:32→21:04)
[2017-07-15] MEDS: Potassium Chloride 20 MEQ Tab.ER PO SCH ×2 (08:33→09:41)
[2017-07-15] MEDS: Lisinopril 10 MG Tab PO SCH (08:33)
[2017-07-15] MEDS: Potassium Chloride 10 MEQ Tab.ER PO SCH (08:34)
[2017-07-15] MEDS: Furosemide 20 MG Tab PO SCH (08:34)
--- NOTE | 2017-07-15 11:26 | PCM.PN ---
<Damion Edouard - Last Filed: 07/15/17 11:23> - General Info Date of Service: 07/15/17 Subjective Update: Patient feels well today. She denies having any complaints. She denies abdominal pain, nausea or vomiting. She has been able to keep liquids down without any difficulty. - Review of Systems General: Reports: Other (See history of present illness) - Patient Data Vitals - Most Recent: Last Vital Signs Temp 37.4 C 07/15/17 07:25 Pulse 62 07/15/17 07:25 Resp 20 07/15/17 07:25 BP 146/67 H 07/15/17 08:33 Pulse Ox 92 L 07/15/17 08:14 Weight - Most Recent: 63.2 kg I&O - Last 24 Hours: Intake & Output 07/14/17 07/15/17 07/15/17 22:59 06:59 14:59 Intake Total 1651 1815 1000 Output Total 700 600 Balance 951 1215 1000 Lab Results Last 24 Hours: Laboratory Results - last 24 hr 07/15/17 07/15/17 Range/Units 04:52 04:52 WBC 5.60 (4.0-11.0) K/uL RBC 3.35 L (4.30-5.90) M/uL Hgb 10.7 L (12.0-16.0) g/dL Hct 32.2 L (36.0-46.0) % MCV 96.1 (80.0-98.0) fL MCH 31.9 (27.0-32.0) pg MCHC 33.2 (31.0-37.0) g/dL RDW Std Deviation 45.8 (28.0-62.0) fl RDW Coeff of Miracle 13 (11.0-15.0) % Plt Count 144 L (150-400) K/uL MPV 10.30 (7.40-12.00) fL Neut % (Auto) 65.7 (48.0-80.0) % Lymph % (Auto) 24.6 (16.0-40.0) % [place] % (Auto) 7.9 (0.0-15.0) % Eos % (Auto) 1.3 (0.0-7.0) % Baso % (Auto) 0.5 (0.0-1.5) % Neut # (Auto) 3.7 (1.4-5.7) K/uL Lymph # (Auto) 1.4 (0.6-2.4) K/uL [place] # (Auto) 0.4 (0.0-0.8) K/uL Eos # (Auto) 0.1 (0.0-0.7) K/uL Baso # (Auto) 0.0 (0.0-0.1) K/uL Nucleated RBC % 0.0 /100WBC Nucleated RBCs # 0 K/uL Sodium 144 (136-146) mmol/L Potassium 3.4 L (3.5-5.1) mmol/L Chloride 117 H (98-110) mmol/L Carbon Dioxide 21 (21-31) mmol/L BUN 11 (6.0-23.0) mg/dL Creatinine 0.6 (0.6-1.5) mg/dL Est Cr Clr Drug Dosing 60.68 mL/min Estimated GFR (MDRD) > 60.0 ml/min Glucose 87 (60-110) mg/dL Calcium 7.4 L (8.8-10.8) mg/dL Med Orders - Current: Current Medications Acetaminophen (Tylenol) 650 mg PO Q4H PRN PRN Reason: Pain (Mild 1-3)/fever Last Admin: 07/14/17 19:08 Dose: 650 mg Albuterol/Ipratropium (Duoneb 3.0-0.5 Mg/3 Ml) 3 ml NEB Q4HRRT PRN PRN Reason: Shortness Of Breath/wheezing Amlodipine Besylate (Norvasc) 5 mg PO BRK [facility] Atenolol (Tenormin) 50 mg PO BRK [facility] Atorvastatin Calcium (Lipitor) 40 mg PO BEDTIME [facility] Docusate Sodium (Colace) 100 mg PO BID PRN PRN Reason: Constipation Enoxaparin Sodium (Lovenox) 30 mg SUBCUT DAILY [facility] Last Admin: 07/15/17 08:29 Dose: 30 mg Furosemide (Lasix) 20 mg PO DAILY [facility] Last Admin: 07/15/17 08:34 Dose: 20 mg Sodium Chloride (Normal Saline) 1,000 mls @ 125 mls/hr IV ASDIRECTED [facility] Last Admin: 07/15/17 07:35 Dose: 125 mls/hr Lisinopril (Prinivil) 10 mg PO DAILY [facility] Last Admin: 07/15/17 08:33 Dose: 10 mg Ondansetron HCl (Zofran Odt) 8 mg PO Q6H PRN PRN Reason: nausea, able to take PO Oxycodone HCl (Oxycodone) 5 mg PO Q4H PRN PRN Reason: Pain (moderate 4-6) Potassium Chloride (Klor-Con M20) 40 meq PO DAILY [facility] Last Admin: 07/15/17 09:41 Dose: Not Given Potassium Chloride (Klor-Con 10) 10 meq PO DAILY [facility] Last Admin: 07/15/17 08:34 Dose: 10 meq Fluticasone/Salmeterol (Advair Diskus 100-50) 1 puff INH BID [facility] Last Admin: 07/15/17 08:32 Dose: 1 puff Discontinued Medications Sodium Chloride (Normal Saline) 1,000 mls @ 999 mls/hr IV STAT ONE Stop: 07/13/17 20:34 Last Infusion: 07/13/17 22:20 Dose: Infused Morphine Sulfate (Morphine) 2 mg IVPUSH Q2H PRN PRN Reason: Pain (severe 7-10) Stop: 07/14/17 21:05 Ondansetron HCl (Zofran) 4 mg IVPUSH ONETIME ONE Stop: 07/13/17 19:35 Last Admin: 07/13/17 19:48 Dose: 4 mg Fluticasone/Salmeterol (Advair Diskus 100-50) 1 puff INH BID [facility] Last Admin: 07/13/17 22:45 Dose: 1 puff - Exam General: Alert, Oriented, Cooperative Lungs: Clear to Auscultation, Normal Respiratory Effort Cardiovascular: Regular Rate, Regular Rhythm, No Murmurs GI/Abdominal Exam: Normal Bowel Sounds, Soft, Non-Tender, No Organomegaly, No Distention, No Abnormal Bruit Extremities: Normal Inspection, No Pedal Edema Psy/Mental Status: Alert, Normal Affect - Problem List Review Problem List Initiated/Reviewed/Updated: Yes - My Orders Last 24 Hours: My Active Orders 07/14/17 Lunch Clear Liquid Diet [DIET] 07/15/17 08:15 Potassium Chloride [Klor-Con M20] 40 meq PO DAILY 07/15/17 08:19 Abdomen w Cont [MR] Routine 07/15/17 09:00 Furosemide [Lasix] 20 mg PO DAILY Lisinopril [Prinivil] 10 mg PO DAILY Potassium Chloride [Klor-Con 10] 10 meq PO DAILY 07/15/17 21:00 atorvaSTATin [Lipitor] 40 mg PO BEDTIME 07/16/17 08:00 Atenolol [Tenormin] 50 mg PO BRK amLODIPine [Norvasc] 5 mg PO BRK - Plan Plan:: A: #1. Elevated lipase, amylase - possible pancreatitis #2. Nausea, dizziness, abdominal pain - resolved #3. History of cholecystectomy, asthma, CHF, HTN, uterine cancer, osteoporosis P: #1. Switch to regular diet #2. Given that this patient has a history of a cholecystectomy, a normal lipid panel which was obtained yesterday and no history of alcohol use, my suspicion for malignancy is high. As per Dr. Patel, we ordered a MRCP for possible etiology for the elevated lipase. Follow up on this once available. <Geovanni Patel - Last Filed: 07/15/17 15:44> - General Info Admission Dx/Problem (Free Text): I performed a history and physical examination of the patient and I have discussed the management with the resident. I have reviewed the residents note and agree with the documented findings and plan of care - Patient Data Vitals - Most Recent: Last Vital Signs Temp 37.1 C 07/15/17 11:24 Pulse 67 07/15/17 11:24 Resp 20 07/15/17 11:24 BP 135/60 07/15/17 11:24 Pulse Ox 96 07/15/17 11:24 I&O - Last 24 Hours: Intake & Output 07/15/17 07/15/17 07/15/17 06:59 14:59 22:59 Intake Total 1815 1000 Output Total 600 Balance 1215 1000 Lab Results Last 24 Hours: Laboratory Results - last 24 hr 07/15/17 07/15/17 Range/Units 04:52 04:52 WBC 5.60 (4.0-11.0) K/uL RBC 3.35 L (4.30-5.90) M/uL Hgb 10.7 L (12.0-16.0) g/dL Hct 32.2 L (36.0-46.0) % MCV 96.1 (80.0-98.0) fL MCH 31.9 (27.0-32.0) pg MCHC 33.2 (31.0-37.0) g/dL RDW Std Deviation 45.8 (28.0-62.0) fl RDW Coeff of Miracle 13 (11.0-15.0) % Plt Count 144 L (150-400) K/uL MPV 10.30 (7.40-12.00) fL Neut % (Auto) 65.7 (48.0-80.0) % Lymph % (Auto) 24.6 (16.0-40.0) % [place] % (Auto) 7.9 (0.0-15.0) % Eos % (Auto) 1.3 (0.0-7.0) % Baso % (Auto) 0.5 (0.0-1.5) % Neut # (Auto) 3.7 (1.4-5.7) K/uL Lymph # (Auto) 1.4 (0.6-2.4) K/uL [place] # (Auto) 0.4 (0.0-0.8) K/uL Eos # (Auto) 0.1 (0.0-0.7) K/uL Baso # (Auto) 0.0 (0.0-0.1) K/uL Nucleated RBC % 0.0 /100WBC Nucleated RBCs # 0 K/uL Sodium 144 (136-146) mmol/L Potassium 3.4 L (3.5-5.1) mmol/L Chloride 117 H (98-110) mmol/L Carbon Dioxide 21 (21-31) mmol/L BUN 11 (6.0-23.0) mg/dL Creatinine 0.6 (0.6-1.5) mg/dL Est Cr Clr Drug Dosing 60.68 mL/min Estimated GFR (MDRD) > 60.0 ml/min Glucose 87 (60-110) mg/dL Calcium 7.4 L (8.8-10.8) mg/dL Med Orders - Current: Current Medications Acetaminophen (Tylenol) 650 mg PO Q4H PRN PRN Reason: Pain (Mild 1-3)/fever Last Admin: 07/14/17 19:08 Dose: 650 mg Albuterol/Ipratropium (Duoneb 3.0-0.5 Mg/3 Ml) 3 ml NEB Q4HRRT PRN PRN Reason: Shortness Of Breath/wheezing Amlodipine Besylate (Norvasc) 5 mg PO BRK [facility] Atenolol (Tenormin) 50 mg PO BRK [facility] Atorvastatin Calcium (Lipitor) 40 mg PO BEDTIME [facility] Docusate Sodium (Colace) 100 mg PO BID PRN PRN Reason: Constipation Enoxaparin Sodium (Lovenox) 30 mg SUBCUT DAILY [facility] Last Admin: 07/15/17 08:29 Dose: 30 mg Furosemide (Lasix) 20 mg PO DAILY [facility] Last Admin: 07/15/17 08:34 Dose: 20 mg Sodium Chloride (Normal Saline) 1,000 mls @ 125 mls/hr IV ASDIRECTED [facility] Last Admin: 07/15/17 07:35 Dose: 125 mls/hr Lisinopril (Prinivil) 10 mg PO DAILY [facility] Last Admin: 07/15/17 08:33 Dose: 10 mg Ondansetron HCl (Zofran Odt) 8 mg PO Q6H PRN PRN Reason: nausea, able to take PO Oxycodone HCl (Oxycodone) 5 mg PO Q4H PRN PRN Reason: Pain (moderate 4-6) Potassium Chloride (Klor-Con M20) 40 meq PO DAILY [facility] Last Admin: 07/15/17 09:41 Dose: Not Given Potassium Chloride (Klor-Con 10) 10 meq PO DAILY [facility] Last Admin: 07/15/17 08:34 Dose: 10 meq Fluticasone/Salmeterol (Advair Diskus 100-50) 1 puff INH BID [facility] Last Admin: 07/15/17 08:32 Dose: 1 puff Discontinued Medications Sodium Chloride (Normal Saline) 1,000 mls @ 999 mls/hr IV STAT ONE Stop: 07/13/17 20:34 Last Infusion: 07/13/17 22:20 Dose: Infused Morphine Sulfate (Morphine) 2 mg IVPUSH Q2H PRN PRN Reason: Pain (severe 7-10) Stop: 07/14/17 21:05 Ondansetron HCl (Zofran) 4 mg IVPUSH ONETIME ONE Stop: 07/13/17 19:35 Last Admin: 07/13/17 19:48 Dose: 4 mg Fluticasone/Salmeterol (Advair Diskus 100-50) 1 puff INH BID [facility] Last Admin: 07/13/17 22:45 Dose: 1 puff
[2017-07-15] MEDS ORDERED: atorvaSTATin 40 MG Tab PO SCH (21:00)
[2017-07-16 05:55] LABS: CHLORIDE,CL 117 mmol/L (98-110); SODIUM,NA 143 mmol/L (136-146)
[2017-07-16] MEDS: FLUTICASONE INH SCH ×2 (06:20→08:26)
[2017-07-16] MEDS: SALMETEROL INH SCH ×2 (06:20→08:26)
[2017-07-16] MEDS ORDERED: Gadobenate Dimeglumine 529 MG/ML 20 ML SDV IVPUSH STA (07:17)
[2017-07-16] MEDS ORDERED: Atenolol 50 MG Tab PO SCH (08:00)
[2017-07-16] MEDS ORDERED: amLODIPine 5 MG Tab PO SCH (08:00)
[2017-07-16] MEDS: Lisinopril 10 MG Tab PO SCH (08:30)
[2017-07-16] MEDS: Furosemide 20 MG Tab PO SCH (08:31)
[2017-07-16] MEDS: Enoxaparin 30 MG/0.3 ML Syringe SUBCUT SCH (08:36)
[2017-07-16] MEDS: Potassium Chloride 10 MEQ Tab.ER PO SCH (08:42)
[2017-07-16] MEDS: Potassium Chloride 20 MEQ Tab.ER PO SCH (08:42)
[2017-07-16] MEDS: Sodium Chloride 0.9% 1,000 ML IV SCH (09:29)
[2017-07-16] MEDS ORDERED: Bisacodyl 5 MG Tab PO SCH (10:15)
[2017-07-16] MEDS ORDERED: Magnesium Sulfate/Water 4 GM in Premix Bag 1 BAG IV ONE (10:15)
[2017-07-16] MEDS ORDERED: Pantoprazole 40 MG Tab.CR PO SCH (11:15)
[2017-07-16 11:57] VITALS: BP 134/66
--- NOTE | 2017-07-16 12:53 | CT ---
CT of the abdomen and pelvis without contrast. HISTORY: Elevated lipase TECHNIQUE: Axial CT images were obtained of the abdomen and pelvis without contrast. Coronal and sagi ttal reconstructions obtained. Comparison: 11/12/2016. FINDINGS: There are small bilateral pleural effusions, right greater than left. There is a partially visualized 1.2 cm nodule within the left breast, stable to at least 08/28/2016. The liver, spleen, adrenal glands, and pancreas appear unremarkable for noncontrast examination. Chol ecystectomy. There is no bulky retroperitoneal lymphadenopathy. No abdominal ascites. There are no calcifications noted within the kidneys or along the courses of the ureters bilaterally. Small right renal cortical cyst. The large and small bowel are normal in caliber without evidence of obstruction. The appendix is not well identified. There is no bulky pelvic lymphadenopathy. There is a small amount of free pelvic flu id. No free air. The urinary bladder appears normal. Mild generalized soft tissue edema. Degenerative changes noted within the lower lumbar spine. No suspicious osseous or metallic identifie d. IMPRESSION: 1. Small bilateral pleural effusions, right greater than left. 2. Small amount of nonspecific free pelvic fluid, etiology is uncertain. 3. Cholecystectomy.
--- NOTE | 2017-07-16 13:20 | PCM.DCSUM1 ---
Discharge Summary - Hospital Course Free Text/Narrative:: Admission date July 13, 2017 Discharge date July 16, 2017 Admission diagnosis #1. Elevated lipase - 364 #2. Lightheadedness, dizziness #3. Abdominal pain #4. Mild anemia #5. Hypomagnesemia #6. History of cholecystectomy, uterine cancer Discharge diagnosis #1. Recheck lipase level normal - 19 #2. Lightheadedness, dizziness resolved #3. Abdominal pain resolved #4. Hypomagnesemia status post 2 g IV magnesium #5. Dyspepsia Hospital course This is a 77-year-old female with a past medical history significant for cholecystectomy, uterine cancer that presented to the emergency room complaining of lightheaded and dizziness. It was incidentally found that she had an elevated lipase. She was then admitted for possible pancreatitis. As for the patient when I went to go see her, she denied having any abdominal pain and felt that she was able to eat that she was started on a clear liquid diet. The next morning, an MRCP was ordered which was unremarkable indicating no blockage or obstruction. A lipid panel was also ordered which was unremarkable. Next morning, a CT of the abdomen with and pelvis was ordered secondary to concern for possible malignancy given her past history. This however also was unremarkable. A repeat lipase check came back normal at 19. Patient did complain of abdominal pain after eating which has been an ongoing issue for her since her cholecystectomy. Clinically this can be correlated with possible gastric reflux, so I started her on pantoprazole 40 mg daily advised her to follow-up with her primary care provider to see if this is helping. At the time of discharge, the patient was on a regular diet tolerating food well, not complaining of any nausea or vomiting. She did not have any abdominal pain either. She is advised to return back to seek medical attention if she experiences any lightheadedness or dizziness again or any abdominal pain or fevers. Discharge medications: 40 mg pantoprazole daily #30 tablets for 30 days. Follow-up is Gia Ag within a 10 days. - Discharge Data Discharge Date: 07/16/17 Discharge Disposition: Home, Self-Care 01 Condition: Fair - Patient Instructions Diet: Regular Diet as Tolerated Activity: As Tolerated Showering/Bathing: January Shower Notify Provider of: Fever, Increased Pain - Discharge Plan Prescriptions/Med Rec: Pantoprazole [ProTONIX] 40 mg PO DAILY 30 Days #30 tab.cr Home Medications: Home Meds Atenolol [Tenormin] 50 mg PO BRK 05/22/14 [History] Calcium Carbonate [Calcium] 1 tab PO BID 05/22/14 [History] Cholecalciferol (Vitamin D3) [Vitamin D] 5,000 units PO DAILY 05/22/14 [History] Denosumab [Prolia] 1 ml INJECT ASDIRECTED 05/22/14 [History] Fluticasone/Salmeterol [Advair 100-50 Diskus] 1 inh INH BID 05/22/14 [History] amLODIPine Besylate [Amlodipine Besylate] 5 mg PO BRK 05/22/14 [History] atorvaSTATin [Lipitor] 40 mg PO BEDTIME 05/22/14 [History] Furosemide 20 mg PO DAILY 10/09/16 [History] Lisinopril 10 mg PO DAILY 10/09/16 [History] Potassium Chloride 10 meq PO DAILY 10/09/16 [History] Pantoprazole [ProTONIX] 40 mg PO DAILY 30 Days #30 tab.cr 07/16/17 [Rx] Referrals: Gia Ag, [employer] [Nurse Practitioner] - 07/26/17 1:00 pm - Discharge Summary/Plan Comment DC Time >30 min.: No Discharge Summary/Plan Comment: Admission date July 13, 2017 Discharge date July 16, 2017 Admission diagnosis #1. Elevated lipase - 364 #2. Lightheadedness, dizziness #3. Abdominal pain #4. Mild anemia #5. Hypomagnesemia #6. History of cholecystectomy, uterine cancer Discharge diagnosis #1. Recheck lipase level normal - 19 #2. Lightheadedness, dizziness resolved #3. Abdominal pain resolved #4. Hypomagnesemia status post 2 g IV magnesium #5. Dyspepsia Hospital course This is a 77-year-old female with a past medical history significant for cholecystectomy, uterine cancer that presented to the emergency room complaining of lightheaded and dizziness. It was incidentally found that she had an elevated lipase. She was then admitted for possible pancreatitis. As for the patient when I went to go see her, she denied having any abdominal pain and felt that she was able to eat that she was started on a clear liquid diet. The next morning, an MRCP was ordered which was unremarkable indicating no blockage or obstruction. A lipid panel was also ordered which was unremarkable. Next morning, a CT of the abdomen with and pelvis was ordered secondary to concern for possible malignancy given her past history. This however also was unremarkable. A repeat lipase check came back normal at 19. Patient did complain of abdominal pain after eating which has been an ongoing issue for her since her cholecystectomy. Clinically this can be correlated with possible gastric reflux, so I started her on pantoprazole 40 mg daily advised her to follow-up with her primary care provider to see if this is helping. At the time of discharge, the patient was on a regular diet tolerating food well, not complaining of any nausea or vomiting. She did not have any abdominal pain either. She is advised to return back to seek medical attention if she experiences any lightheadedness or dizziness again or any abdominal pain or fevers. Discharge medications: 40 mg pantoprazole daily #30 tablets for 30 days. Follow-up is Gia Ag within a 10 days. - Patient Data Vitals - Most Recent: Last Vital Signs Temp 36.9 C 07/16/17 11:56 Pulse 68 07/16/17 11:56 Resp 20 07/16/17 11:56 BP 134/66 07/16/17 11:56 Pulse Ox 95 07/16/17 11:56 Weight - Most Recent: 63.2 kg I&O - Last 24 hours: Intake & Output 07/15/17 07/16/17 07/16/17 22:59 06:59 14:59 Intake Total 1871 1866 Output Total 1000 2000 Balance 871 -134 Lab Results - Last 24 hrs: Laboratory Results - last 24 hr 07/16/17 07/16/17 07/16/17 Range/Units 05:00 05:00 05:00 WBC 5.48 (4.0-11.0) K/uL RBC 3.38 L (4.30-5.90) M/uL Hgb 10.8 L (12.0-16.0) g/dL Hct 32.2 L (36.0-46.0) % MCV 95.3 (80.0-98.0) fL MCH 32.0 (27.0-32.0) pg MCHC 33.5 (31.0-37.0) g/dL RDW Std Deviation 44.6 (28.0-62.0) fl RDW Coeff of Miracle 13 (11.0-15.0) % Plt Count 138 L (150-400) K/uL MPV 10.40 (7.40-12.00) fL Neut % (Auto) 72.2 (48.0-80.0) % Lymph % (Auto) 15.5 L (16.0-40.0) % [place] % (Auto) 10.8 (0.0-15.0) % Eos % (Auto) 1.1 (0.0-7.0) % Baso % (Auto) 0.4 (0.0-1.5) % Neut # (Auto) 4.0 (1.4-5.7) K/uL Lymph # (Auto) 0.9 (0.6-2.4) K/uL [place] # (Auto) 0.6 (0.0-0.8) K/uL Eos # (Auto) 0.1 (0.0-0.7) K/uL Baso # (Auto) 0.0 (0.0-0.1) K/uL Nucleated RBC % 0.0 /100WBC Nucleated RBCs # 0 K/uL Sodium 143 (136-146) mmol/L Potassium 3.4 L (3.5-5.1) mmol/L Chloride 117 H (98-110) mmol/L Carbon Dioxide 19 L (21-31) mmol/L BUN 7 (6.0-23.0) mg/dL Creatinine 0.6 (0.6-1.5) mg/dL Est Cr Clr Drug Dosing 60.68 mL/min Estimated GFR (MDRD) > 60.0 ml/min Glucose 86 (60-110) mg/dL Calcium 7.1 L (8.8-10.8) mg/dL Lipase 19 (7-80) U/L Med Orders - Current: Current Medications Acetaminophen (Tylenol) 650 mg PO Q4H PRN PRN Reason: Pain (Mild 1-3)/fever Last Admin: 07/14/17 19:08 Dose: 650 mg Albuterol/Ipratropium (Duoneb 3.0-0.5 Mg/3 Ml) 3 ml NEB Q4HRRT PRN PRN Reason: Shortness Of Breath/wheezing Amlodipine Besylate (Norvasc) 5 mg PO BRK [facility] Last Admin: 07/16/17 08:29 Dose: 5 mg Atenolol (Tenormin) 50 mg PO BRK [facility] Last Admin: 07/16/17 08:30 Dose: 50 mg Atorvastatin Calcium (Lipitor) 40 mg PO BEDTIME [facility] Last Admin: 07/15/17 21:16 Dose: 40 mg Bisacodyl (Dulcolax) 10 mg PO DAILY [facility] Last Admin: 07/16/17 10:34 Dose: 10 mg Docusate Sodium (Colace) 100 mg PO BID PRN PRN Reason: Constipation Enoxaparin Sodium (Lovenox) 30 mg SUBCUT DAILY [facility] Last Admin: 07/16/17 08:36 Dose: 30 mg Furosemide (Lasix) 20 mg PO DAILY [facility] Last Admin: 07/16/17 08:31 Dose: 20 mg Sodium Chloride (Normal Saline) 1,000 mls @ 125 mls/hr IV ASDIRECTED [facility] Last Admin: 07/16/17 09:29 Dose: 125 mls/hr Magnesium Sulfate 4 gm/ Premix 100 mls @ 25 mls/hr IV ONETIME ONE Stop: 07/16/17 14:14 Last Admin: 07/16/17 10:29 Dose: 25 mls/hr Lisinopril (Prinivil) 10 mg PO DAILY [facility] Last Admin: 07/16/17 08:30 Dose: 10 mg Ondansetron HCl (Zofran Odt) 8 mg PO Q6H PRN PRN Reason: nausea, able to take PO Last Admin: 07/15/17 21:16 Dose: 8 mg Oxycodone HCl (Oxycodone) 5 mg PO Q4H PRN PRN Reason: Pain (moderate 4-6) Pantoprazole Sodium (Protonix) 40 mg PO DAILY [facility] Last Admin: 07/16/17 11:25 Dose: 40 mg Potassium Chloride (Klor-Con M20) 40 meq PO DAILY [facility] Last Admin: 07/16/17 08:42 Dose: 40 meq Potassium Chloride (Klor-Con 10) 10 meq PO DAILY [facility] Last Admin: 07/16/17 08:42 Dose: 10 meq Fluticasone/Salmeterol (Advair Diskus 100-50) 1 puff INH BID [facility] Last Admin: 07/16/17 08:26 Dose: Not Given Discontinued Medications Gadobenate Dimeglumine (Multihance) 20 ml IVPUSH ONETIME STA Stop: 07/16/17 07:18 Last Admin: 07/16/17 07:18 Dose: 11 ml Sodium Chloride (Normal Saline) 1,000 mls @ 999 mls/hr IV STAT ONE Stop: 07/13/17 20:34 Last Infusion: 07/13/17 22:20 Dose: Infused Morphine Sulfate (Morphine) 2 mg IVPUSH Q2H PRN PRN Reason: Pain (severe 7-10) Stop: 07/14/17 21:05 Ondansetron HCl (Zofran) 4 mg IVPUSH ONETIME ONE Stop: 07/13/17 19:35 Last Admin: 07/13/17 19:48 Dose: 4 mg Fluticasone/Salmeterol (Advair Diskus 100-50) 1 puff INH BID [facility] Last Admin: 07/13/17 22:45 Dose: 1 puff *Q Meaningful Use (DIS) - VTE *Q VTE Criteria *Q: - Stroke *Q Stroke Criteria *Q: - AMI *Q AMI Criteria *Q:
--- NOTE | 2017-07-16 14:56 | MR ---
EXAM DATE: 07/13/17 PATIENT'S AGE: 77 Patient: DON MCGINNIS Facility: [place], [place] Site . Site : [id number] Study: MRI Abdomen W/ and W/O Cont [id number]/10/2017 8:18:11 AM Ordering Physician: Amanda Galarza Final Report: INDICATION: ELEVATED LIPASE,HX OF ENDOMETRIAL AND UTERINE CANCER,CHOLECYSTECTOMY TECHNIQUE: Abdominal MRI with T1 in- and out of phase, T2, diffusion weighted, and post- contrast images. Intravenous gadolinium administered. Heavily T2 weighted 2D and 3D MRCP images also performed. COMPARISON: MRI/MRCP dated 14 October 2016. FINDINGS: No fatty infiltration of the liver. 1.1 cm enhancing lesion located in the upper portion of segment 5 is unchanged. This could represent an intrahepatic portosystemic shunt versus a hemangioma but is incompletely assessed with only venous phase post-contrast images obtained. No other focal abnormalities identified in the visualized portions of the liver, spleen, pancreas, and adrenal glands. 1.7 cm cyst in the interpolar region of the right kidney. The kidneys are otherwise unremarkable. No hydronephrosis. No adenopathy. Moderate right-sided pleural effusion and small left-sided pleural effusion with bibasilar atelectasis. No intra or extrahepatic bile duct dilation with the common bile duct measuring 5 mm. No filling defects in the biliary system. Normal size of the main pancreatic duct. Cholecystectomy changes. IMPRESSION: 1. No bile duct dilation. No choledocholithiasis. Normal size of the main pancreatic duct. 2. Small enhancing liver lesion is incompletely assessed on this study but may represent an intrahepatic portosystemic shunt versus a hemangioma and is unchanged. 3. Recommend followup MRI in 6 months with multiphasic postcontrast images for further evaluation. 4. Moderate-sized pleural effusion and small left-sided pleural effusion. Dictated by El Amaya MD @ 07/16/2017 8:53:51 AM Dictated by: El Amaya MD @ 07/16/2017 08:54:07 (Electronic Signature) Report Signed by Proxy. [facility] H[facility]SIDE HOSPITALGreg
[2017-07-17] MEDS ORDERED: Enoxaparin 40 MG/0.4 ML Syringe SUBCUT SCH (09:00)
== END 2017-07-16 14:45 | disposition home or self-care (01) ==
LOC: MW.ED 19:12 → MW.MS 20:47
PROVIDERS: ADMIT Internal Medicine; ATTEND Internal Medicine
DX: R74.8 Abnormal levels of other serum enzymes (principal); R42 Dizziness and giddiness; E83.42 Hypomagnesemia; R10.13 Epigastric pain; I11.0 Hypertensive heart disease with heart failure; I50.9 Heart failure, unspecified; E78.00 Pure hypercholesterolemia, unspecified; J45.909 Unspecified asthma, uncomplicated; H91.90 Unspecified hearing loss, unspecified ear; I35.8 Other nonrheumatic aortic valve disorders; G62.9 Polyneuropathy, unspecified; Z87.01 Personal history of pneumonia (recurrent); Z85.42 Personal history of malignant neoplasm of other parts of uterus; Z90.710 Acquired absence of both cervix and uterus; Z90.49 Acquired absence of other specified parts of digestive tract; Z88.0 Allergy status to penicillin; Z88.2 Allergy status to sulfonamides; Z79.01 Long term (current) use of anticoagulants; Z79.51 Long term (current) use of inhaled steroids; Z79.899 Other long term (current) drug therapy; Z98.49 Cataract extraction status, unspecified eye; Z96.20 Presence of otological and audiological implant, unspecified; Z97.4 Presence of external hearing-aid
CPT/HCPCS: 36415; 70450; 71010; 74176; 74183; 80048; 80053; 80061; 81001; 82150; 83690; 83735; 84100; 84484; 85025; 93005; 96361; 96374; 99285; A9270; A9577; J1650; J2405; J3475; J7040; 96360; 96365; 96366; 96372; 96375; 99282; G0378

== ENCOUNTER 2018-01-21 14:27 | Emergency (ER) | payer MEDICARE, BC ==
[2018-01-21] MEDS ORDERED: Ondansetron 4 MG/2 ML SDV IVPUSH ONE (14:53)
[2018-01-21] MEDS ORDERED: Sodium Chloride 0.9% 10 ML Syringe FLUSH PRN (14:54)
[2018-01-21] MEDS ORDERED: Sodium Chloride 0.9% 2.5 ML Syringe FLUSH PRN (14:54)
--- NOTE | 2018-01-21 14:54 | EDM.PDOC ---
ED HPI GENERAL MEDICAL PROBLEM - General Chief Complaint: Gastrointestinal Problem Stated Complaint: SICK Time Seen by Provider: 01/21/18 14:54 Source of Information: Reports: EMS, EMS Notes Reviewed History Limitations: Reports: No Limitations - History of Present Illness INITIAL COMMENTS - FREE TEXT/NARRATIVE: HISTORY AND PHYSICAL: []77-year-old female brought by EMS from criminal or as History of Present Illness: []Patient has history of pancreatitis she has been vomiting since 10:00 this morning/5 hours States her symptoms are similar to what she's had previously with her pancreatitis. Patient complaining of dizziness that started the same time as her vomiting. SHe states that she was so weak that she had a long time before she could get up off of the toilet. Review of Systems: As per history of present illness and below otherwise all systems reviewed and negative. Past medical history: As per history of present illness and as reviewed below otherwise noncontributory. Surgical history: As per history of present illness and as reviewed below otherwise noncontributory. Social history: No reported history of drug or alcohol abuse. Family history: As per history of present illness and as reviewed below otherwise noncontributory. Physical exam: Alert female answering questions appropriately in full sentences without shortness of breath HEENT: Atraumatic, normocehpalic, pupils reactive, negative for conjunctival pallor or scleral icterus, mucous membranes moist, throat clear, neck supple, nontender, trachea midline. Lungs: Clear to auscultation, breath sounds equal bilaterally, chest non tender. Heart: S1S2, regular, negative for clicks, rubs, or JVD. Abdomen: Soft, nondistended, nontender. Negative for masses or hepatossplenmegaly. Negative for costovertebral tenderness. Pelvis: Stable nontender. Genitourinary: Deferred. Rectal: Deferred Extremities: Atraumatic, negative for cords or calf pain. HAnd grasps are equal PERRLA no drift no weakness. Moves all extremities well and with purpose. Neurovascular unremarkable. Neuro: Awake, alert, oriented. Cranial nerves II through XII unremarkable. Cerebellum unremarkable. Motor and sensory unremarkable throughout. Exam nonfocal. Diagnostics: []CBC CMP blood cultures EKG head CT chest x-ray abdominal upright Therapeutics: []IV fluids Zofran Impression: []Nausea vomiting resolved Plan: []Discharged home Prescription for Zofran Follow-up with your primary care provider in 3 days If worsening of symptoms occurs return for reevaluation Definitive disposition and diagnosis as appropriate pending reevaluation and review of above. Onset: Today, Sudden Duration: Hour(s): Location: Reports: Abdomen Quality: Reports: Ache Severity: Moderate Improves with: Reports: None Worsens with: Reports: None - Related Data Allergies Allergy/AdvReac Type Severity Reaction Status Date / Time Penicillins Allergy Rash Verified 01/21/18 14:32 Sulfa (Sulfonamide Allergy Abdominal Verified 01/21/18 14:32 Antibiotics) Pain Difficult Intubation Allergy Other Uncoded 01/21/18 14:32 Home Meds: Home Meds Atenolol [Tenormin] 50 mg PO BRK 05/22/14 [History] Calcium Carbonate [Calcium] 1 tab PO BID 05/22/14 [History] Cholecalciferol (Vitamin D3) [Vitamin D] 5,000 units PO DAILY 05/22/14 [History] Denosumab [Prolia] 1 ml INJECT ASDIRECTED 05/22/14 [History] Fluticasone/Salmeterol [Advair 100-50 Diskus] 1 inh INH BID 05/22/14 [History] amLODIPine Besylate [Amlodipine Besylate] 5 mg PO BRK 05/22/14 [History] atorvaSTATin [Lipitor] 40 mg PO BEDTIME 05/22/14 [History] Furosemide 20 mg PO DAILY 10/09/16 [History] Lisinopril 10 mg PO DAILY 10/09/16 [History] Potassium Chloride 10 meq PO DAILY 10/09/16 [History] Pantoprazole [ProTONIX] 40 mg PO DAILY 30 Days #30 tab.cr 07/16/17 [Rx] Ondansetron HCl [Zofran] 4 mg PO Q8H PRN #12 ml 01/21/18 [Rx] Past Medical History HEENT History: Reports: Cataract, Hard of Hearing, Other (See Below) Other HEENT History: [place] hearing aids, titanium implant to left ear, wears glasses Cardiovascular History: Reports: Heart Failure, High Cholesterol, Hypertension, Other (See Below) Other Cardiovascular History: Aortic valve calcification per Dr. Garza report Respiratory History: Reports: Asthma, Pneumonia, Recurrent Gastrointestinal History: Reports: Cholelithiasis, Other (See Below) Genitourinary History: Reports: Other (See Below) Other Genitourinary History: UTI once [employer] History: Reports: Other (See Below) Other OB/BYN History: CA of uterus 2014, chemo, radiation, hysterectomy Musculoskeletal History: Reports: Fracture, Osteoporosis Neurological History: Reports: Neuropathy, Peripheral Psychiatric History: Reports: None Endocrine/Metabolic History: Reports: None Hematologic History: Reports: None Immunologic History: Reports: None Oncologic (Cancer) History: Reports: Uterine Other Oncologic History: endometrial cancer and also found in 1 lymph node, treated with chemo and radiation Dermatologic History: Reports: None - Infectious Disease History Infectious Disease History: Reports: Chicken Pox, Measles, Mumps - Past Surgical History Head Surgeries/Procedures: Reports: None HEENT Surgical History: Reports: Cataract Surgery, Tonsillectomy Cardiovascular Surgical History: Reports: None Respiratory Surgical History: Reports: None GI Surgical History: Reports: Cholecystectomy Female Surgical History: Reports: Hysterectomy Social & Family History - Family History Family Medical History: Noncontributory - Tobacco Use Smoking Status *Q: Never Smoker - Caffeine Use Caffeine Use: Reports: None - Recreational Drug Use Recreational Drug Use: No ED ROS GENERAL - Review of Systems Review Of Systems: ROS reveals no pertinent complaints other than HPI. ED EXAM, GI/ABD - Physical Exam Exam: See Below (See dictation) EKG INTERPRETATION EKG Date: 01/21/18 Rhythm: NSR Comparison: NA - No Prior EKG Course - Vital Signs Last Recorded V/S: Last Vital Signs Temp 36.3 C 01/21/18 14:32 Pulse 83 01/21/18 17:15 Resp 18 01/21/18 17:15 BP 116/49 L 01/21/18 17:15 Pulse Ox 95 01/21/18 17:15 - Orders/Labs/Meds Orders: Active Orders 24 hr Category Date Time Status EKG 12 Lead [EKG Documentation Completion] [RC] STAT Care 01/21/18 14:48 Active EKG Documentation Completion [RC] STAT Care 01/21/18 14:54 Inactive CULTURE BLOOD [BC] Stat Lab 01/21/18 14:55 Received CULTURE BLOOD [BC] Stat Lab 01/21/18 15:10 Received UA W/MICROSCOPIC [URIN] Stat Lab 01/21/18 14:55 Ordered Sodium Chloride 0.9% [Normal Saline] 500 ml Med 01/21/18 15:15 Active IV STAT Sodium Chloride 0.9% [Normal Saline] 500 ml Med 01/21/18 17:15 Active IV STAT Sodium Chloride 0.9% [Saline Flush] Med 01/21/18 14:54 Active 10 ml FLUSH ASDIRECTED PRN Sodium Chloride 0.9% [Saline Flush] Med 01/21/18 14:54 Active 2.5 ml FLUSH ASDIRECTED PRN Blood Culture x2 Reflex Set [OM.PC] Stat Oth 01/21/18 14:49 Ordered Saline Lock Insert [OM.PC] Stat Oth 01/21/18 14:54 Ordered Medication Orders Sodium Chloride (Normal Saline) 500 mls @ 999 mls/hr IV STAT LASHAY Last Admin: 01/21/18 17:27 Dose: 999 mls/hr Infusion: 01/21/18 15:36 Dose: 999 mls/hr Admin: 01/21/18 15:05 Dose: 999 mls/hr Sodium Chloride (Normal Saline) 500 mls @ 999 mls/hr IV STAT LASHAY Sodium Chloride (Saline Flush) 10 ml FLUSH ASDIRECTED PRN PRN Reason: Keep Vein Open Sodium Chloride (Saline Flush) 2.5 ml FLUSH ASDIRECTED PRN PRN Reason: Keep Vein Open Labs: Laboratory Tests 01/21/18 01/21/18 01/21/18 Range/Units 14:55 14:55 14:55 WBC 10.24 (4.0-11.0) K/uL RBC 3.97 L (4.30-5.90) M/uL Hgb 12.7 (12.0-16.0) g/dL Hct 37.3 (36.0-46.0) % MCV 94.0 (80.0-98.0) fL MCH 32.0 (27.0-32.0) pg MCHC 34.0 (31.0-37.0) g/dL RDW Std Deviation 44.0 (28.0-62.0) fl RDW Coeff of Miracle 13 (11.0-15.0) % Plt Count 191 (150-400) K/uL MPV 10.70 (7.40-12.00) fL Neut % (Auto) 87.1 H (48.0-80.0) % Lymph % (Auto) 7.5 L (16.0-40.0) % Dickens % (Auto) 4.9 (0.0-15.0) % Eos % (Auto) 0.3 (0.0-7.0) % Baso % (Auto) 0.2 (0.0-1.5) % Neut # (Auto) 8.9 H (1.4-5.7) K/uL Lymph # (Auto) 0.8 (0.6-2.4) K/uL Dickens # (Auto) 0.5 (0.0-0.8) K/uL Eos # (Auto) 0.0 (0.0-0.7) K/uL Baso # (Auto) 0.0 (0.0-0.1) K/uL Nucleated RBC % 0.0 /100WBC Nucleated RBCs # 0 K/uL Sodium 143 (136-145) mmol/L Potassium 3.7 (3.5-5.1) mmol/L Chloride 107 (98-107) mmol/L Carbon Dioxide 26.7 (21.0-32.0) mmol/L BUN 20 H (7.0-18.0) mg/dL Creatinine 0.9 (0.6-1.0) mg/dL Est Cr Clr Drug Dosing 39.50 mL/min Estimated GFR (MDRD) > 60.0 ml/min Glucose 143 H (74-106) mg/dL Calcium 9.3 (8.5-10.1) mg/dL Total Bilirubin 0.9 (0.2-1.0) mg/dL AST 37 (15-37) IU/L ALT 43 (14-63) IU/L Alkaline Phosphatase 55 (46-116) U/L Total Protein 6.7 (6.4-8.2) g/dL Albumin 3.8 (3.4-5.0) g/dL Globulin 2.9 (2.0-3.5) g/dL Albumin/Globulin Ratio 1.3 (1.3-2.8) Amylase 57 (25-115) U/L Lipase 221 (73-393) U/L Urine Color YELLOW Urine Appearance CLEAR Urine pH 8.0 (5.0-8.0) Ur Specific [place] 1.020 (1.001-1.035) Urine Protein NEGATIVE (NEGATIVE) mg/dL Urine Glucose (UA) NEGATIVE (NEGATIVE) mg/dL Urine Ketones NEGATIVE (NEGATIVE) mg/dL Urine Occult Blood NEGATIVE (NEGATIVE) Urine Nitrite NEGATIVE (NEGATIVE) Urine Bilirubin NEGATIVE (NEGATIVE) Urine Urobilinogen 0.2 (<2.0) EU/dL Ur Leukocyte Esterase NEGATIVE (NEGATIVE) Urine RBC 0-2 (0-2/HPF) Urine WBC 0-2 (0-5/HPF) Ur Epithelial Cells OCCASIONAL (NONE-FEW) Urine Bacteria RARE (NEGATIVE) Meds: Medications Generic Name Dose Route Start Last Admin Trade Name Freq PRN Reason Stop Dose Admin Sodium Chloride 500 mls @ 999 mls/hr 01/21/18 15:15 01/21/18 17:27 Normal Saline IV 999 mls/hr STAT LASHAY Administration Sodium Chloride 500 mls @ 999 mls/hr 01/21/18 17:15 Normal Saline IV STAT LASHAY Sodium Chloride 10 ml 01/21/18 14:54 Saline Flush FLUSH ASDIRECTED PRN Keep Vein Open Sodium Chloride 2.5 ml 01/21/18 14:54 Saline Flush FLUSH ASDIRECTED PRN Keep Vein Open Discontinued Medications Generic Name Dose Route Start Last Admin Trade Name Freq PRN Reason Stop Dose Admin Ondansetron HCl 4 mg 01/21/18 14:53 01/21/18 14:56 Zofran IVPUSH 01/21/18 14:54 4 mg ONETIME ONE Administration Departure - Departure Time of Disposition: 18:02 Disposition: Home, Self-Care 01 Condition: Good Clinical Impression: Nausea and vomiting Qualifiers: Vomiting type: unspecified Vomiting Intractability: non-intractable Qualified Code(s): R11.2 - Nausea with vomiting, unspecified - Discharge Information Prescriptions: Ondansetron HCl [Zofran] 4 mg PO Q8H PRN #12 ml PRN Reason: Nausea/Vomiting Instructions: Dehydration, Adult, [id number], Nausea and Vomiting, Adult, [id number] Referrals: PCP,None [Primary Care Provider] - Forms: ED Department Discharge Additional Instructions: The following information is given to patients seen in the emergency department who are being discharged to home. This information is to outline your options for follow-up care. We provide all patients seen in our emergency department with a follow-up referral. The need for follow-up, as well as the timing and circumstances, are variable depending upon the specifics of your emergency department visit. If you don't have a primary care physician on staff, we will provide you with a referral. We always advise you to contact your personal physician following an emergency department visit to inform them of the circumstance of the visit and for follow-up with them and/or the need for any referrals to a consulting specialist. The emergency department will also refer you to a specialist when appropriate. This referral assures that you have the opportunity for followup care with a specialist. All of these measure are taken in an effort to provide you with optimal care, which includes your followup. Under all circumstances we always encourage you to contact your private physician who remains a resource for coordinating your care. When calling for followup care, please make the office aware that this follow-up is from your recent emergency room visit. If for any reason you are refused follow-up, please contact the [facility] emergency department at and asked to speak to the emergency department charge nurse. nausea and vomiting was controlled with Zofran Prescription has been electronically sent to your pharmacy Zofran Follow up with your primary care provider in 3 days Worsening of symptoms over this weekend return to the emergency room for further evaluation - My Orders Last 24 Hours: My Active Orders 01/21/18 14:48 EKG 12 Lead [EKG Documentation Completion] [RC] STAT 01/21/18 14:49 Blood Culture x2 Reflex Set [OM.PC] Stat 01/21/18 14:54 EKG Documentation Completion [RC] STAT Sodium Chloride 0.9% [Saline Flush] 10 ml FLUSH ASDIRECTED PRN Sodium Chloride 0.9% [Saline Flush] 2.5 ml FLUSH ASDIRECTED PRN Saline Lock Insert [OM.PC] Stat 01/21/18 14:55 CULTURE BLOOD [BC] Stat UA W/MICROSCOPIC [URIN] Stat 01/21/18 15:10 CULTURE BLOOD [BC] Stat 01/21/18 15:15 Sodium Chloride 0.9% [Normal Saline] 500 ml IV STAT 01/21/18 17:15 Sodium Chloride 0.9% [Normal Saline] 500 ml IV STAT - Assessment/Plan Last 24 Hours: My Active Orders 01/21/18 14:48 EKG 12 Lead [EKG Documentation Completion] [RC] STAT 01/21/18 14:49 Blood Culture x2 Reflex Set [OM.PC] Stat 01/21/18 14:54 EKG Documentation Completion [RC] STAT Sodium Chloride 0.9% [Saline Flush] 10 ml FLUSH ASDIRECTED PRN Sodium Chloride 0.9% [Saline Flush] 2.5 ml FLUSH ASDIRECTED PRN Saline Lock Insert [OM.PC] Stat 01/21/18 14:55 CULTURE BLOOD [BC] Stat UA W/MICROSCOPIC [URIN] Stat 01/21/18 15:10 CULTURE BLOOD [BC] Stat 01/21/18 15:15 Sodium Chloride 0.9% [Normal Saline] 500 ml IV STAT 01/21/18 17:15 Sodium Chloride 0.9% [Normal Saline] 500 ml IV STAT
[2018-01-21] MEDS: Sodium Chloride 0.9% 500 ML IV SCH ×2 (15:05→17:27)
[2018-01-21 15:27] LABS: CHLORIDE,CL 107 mmol/L (98-107); SODIUM,NA 143 mmol/L (136-145)
--- NOTE | 2018-01-21 15:35 | CT ---
EXAMINATION: Non contrast CT head. Coronal and sagittal reformats. HISTORY: Dizziness FINDINGS: No evidence of intra or extra axial hemorrhage, mass, midline shift, hydrocephalus or edema. There i s moderate generalized atrophy. Mild periventricular white matter hypodensities. No hypoattenuation changes in the major vascular territories to suggest acute infarct. Calcifications of the anterior falx noted. Mild vascular calcifications. Minimal mucosal thickening within the sphenoid sinuses. Mastoid air cells and middle ears are grossly clear. Orbits and globes are symmetric. Pituitary fossa appears unremarkable. Calvarium is intact. No evidence of skull fracture. IMPRESSION: 1. No acute intracranial findings. 2. Moderate generalized atrophy.
--- NOTE | 2018-01-21 15:52 | CR ---
EXAMINATION: Abdomen HISTORY: Pain COMPARISON: CT dated 12/30/2017 TECHNIQUE: AP view of the abdomen FINDINGS: No free air under the diaphragm. Nonobstructive bowel gas pattern with a small amount of ga s within the colon. No dilated loops of small bowel. Cholecystectomy clips. No organomegaly or abnorm al calcifications. Osseous structures appear osteopenic. Lung bases are clear. IMPRESSION: Grossly unremarkable abdomen.
[2018-01-21] MEDS ORDERED: Sodium Chloride 0.9% 500 ML IV SCH (17:15)
[2018-01-21 18:53] VITALS: BP 136/88
== END 2018-01-21 18:50 | disposition home or self-care (01) ==
LOC: MW.ED 14:27
DX: R11.2 Nausea with vomiting, unspecified (principal); I11.0 Hypertensive heart disease with heart failure; I50.9 Heart failure, unspecified; E78.00 Pure hypercholesterolemia, unspecified; Z88.0 Allergy status to penicillin; Z88.2 Allergy status to sulfonamides; Z79.899 Other long term (current) drug therapy
CPT/HCPCS: 36415; 70450; 74018; 80053; 81001; 82150; 83690; 85025; 87040; 93005; 96361; 96374; 99285; J2405; J7040; 99283

== ENCOUNTER 2019-08-01 22:24 | Emergency (ER) | payer MEDICARE, BC ==
--- NOTE | 2019-08-01 22:58 | EDM.PDOC ---
ED HPI GENERAL MEDICAL PROBLEM - General Chief Complaint: Abdominal Pain Stated Complaint: AMB Time Seen by Provider: 08/01/19 22:56 - History of Present Illness INITIAL COMMENTS - FREE TEXT/NARRATIVE: HISTORY AND PHYSICAL: History of present illness: Patient's 79-year-old white female presented concern of lower abdominal pain this is greatest in the right lower quadrant has been worse over the last 24 hours has been no vomiting diarrhea urinary symptoms fever chills she denies trauma she has had prior hysterectomy she does still have her appendix. Review of systems: As per history of present illness and below otherwise all systems reviewed and negative. Past medical history: As per history of present illness and as reviewed below otherwise noncontributory. Surgical history: As per history of present illness and as reviewed below otherwise noncontributory. Social history: No reported history of drug or alcohol abuse. Family history: As per history of present illness and as reviewed below otherwise noncontributory. Physical exam: HEENT: Atraumatic, normocephalic, pupils reactive, negative for conjunctival pallor or scleral icterus, mucous membranes moist, throat clear, neck supple, nontender, trachea midline. Lungs: Clear to auscultation, breath sounds equal bilaterally, chest nontender. Heart: S1S2, negative for clicks, rubs, or JVD. Abdomen: Soft, nondistended, tenderness across her lower abdomen greatest in right lower quadrant some voluntary guarding equivocal rebound Negative for masses or hepatosplenomegaly. Negative for costovertebral tenderness. Pelvis: Stable nontender. Genitourinary: Deferred. Rectal: Deferred. Extremities: Atraumatic, negative for cords or calf pain. Neurovascular unremarkable. Neuro: Awake, alert, oriented. Cranial nerves II through XII unremarkable. Cerebellum unremarkable. Motor and sensory unremarkable throughout. Exam nonfocal. Diagnostics: CBC CMP UA CT abdomen and pelvis Therapeutics: Saline 1 L bolus Impression: #1 abdominal pain Definitive disposition and diagnosis as appropriate pending reevaluation and review of above. Right Lower Abdomen Pain Score (Numeric/FACES): 4 - Related Data Allergies Allergy/AdvReac Type Severity Reaction Status Date / Time Penicillins Allergy Rash Verified 08/01/19 22:38 Sulfa (Sulfonamide Allergy Abdominal Verified 08/01/19 22:38 Antibiotics) Pain Difficult Intubation Allergy Other Uncoded 08/01/19 22:38 Home Meds: Home Meds Atenolol [Tenormin] 50 mg PO BRK 05/22/14 [History] Calcium Carbonate [Calcium] 1 tab PO BID 05/22/14 [History] Denosumab [Prolia] 1 ml INJECT ASDIRECTED 05/22/14 [History] Fluticasone/Salmeterol [Advair 100-50 Diskus] 1 inh INH BID 05/22/14 [History] amLODIPine Besylate [Amlodipine Besylate] 5 mg PO BRK 05/22/14 [History] atorvaSTATin [Lipitor] 40 mg PO BEDTIME 05/22/14 [History] Furosemide 20 mg PO DAILY 10/09/16 [History] Lisinopril 10 mg PO DAILY 10/09/16 [History] Potassium Chloride 10 meq PO DAILY 10/09/16 [History] Warfarin [Coumadin] 4 mg PO ASDIRECTED 08/01/19 [History] Past Medical History HEENT History: Reports: Cataract, Hard of Hearing, Other (See Below) Other HEENT History: ro[place] hearing aids, titanium implant to left ear, wears glasses Cardiovascular History: Reports: Heart Failure, High Cholesterol, Hypertension, Other (See Below) Other Cardiovascular History: Aortic valve calcification per Dr. 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) Other L[employer] EDGE [employer] MACHINE History: CA of uterus 2013, chemo, radiation, hysterectomy Musculoskeletal History: Reports: Fracture, Osteoporosis Neurological History: Reports: Neuropathy, Peripheral Psychiatric History: Reports: None Endocrine/Metabolic History: Reports: None Hematologic History: Reports: None Immunologic History: Reports: None Oncologic (Cancer) History: Reports: Uterine Other Oncologic History: endometrial cancer and also found in 1 lymph node, treated with chemo and radiation Dermatologic History: Reports: None - Infectious Disease History Infectious Disease History: Reports: Chicken Pox, Measles, Mumps - Past Surgical History Head Surgeries/Procedures: Reports: None HEENT Surgical History: Reports: Adenoidectomy, Cataract Surgery, Tonsillectomy Cardiovascular Surgical History: Reports: None Respiratory Surgical History: Reports: None GI Surgical History: Reports: Cholecystectomy Female Surgical History: Reports: Hysterectomy Social & Family History - Family History Family Medical History: Noncontributory - Tobacco Use Smoking Status *Q: Never Smoker - Caffeine Use Caffeine Use: Reports: None - Recreational Drug Use Recreational Drug Use: No ED ROS GENERAL - Review of Systems Review Of Systems: Comprehensive ROS is negative, except as noted in HPI. ED EXAM, GENERAL - Physical Exam Exam: See Below (Dictation) Course - Vital Signs Last Recorded V/S: Last Vital Signs Temp 37.4 C 08/01/19 22:34 Pulse 81 08/01/19 22:34 Resp 18 08/01/19 22:34 BP 169/97 H 08/01/19 22:34 Pulse Ox 96 08/01/19 22:34 - Orders/Labs/Meds Orders: Active Orders 24 hr Category Date Time Status Abdomen Pelvis wo Cont [CT] Stat Exams 08/01/19 22:50 Taken Chest 1V Frontal [CR] Stat Exams 08/01/19 22:50 Taken CULTURE URINE [RM] Stat Lab 08/01/19 23:20 Received Labs: Laboratory Tests 08/01/19 08/01/19 08/01/19 Range/Units 22:55 22:55 22:55 WBC 7.76 (4.0-11.0) K/uL RBC 4.06 L (4.30-5.90) M/uL Hgb 13.1 (12.0-16.0) g/dL Hct 37.3 (36.0-46.0) % MCV 91.9 (80.0-98.0) fL MCH 32.3 H (27.0-32.0) pg MCHC 35.1 (31.0-37.0) g/dL RDW Std Deviation 44.2 (28.0-62.0) fl RDW Coeff of Miracle 13 (11.0-15.0) % Plt Count 210 (150-400) K/uL MPV 10.60 (7.40-12.00) fL Neut % (Auto) 78.3 (48.0-80.0) % Lymph % (Auto) 13.3 L (16.0-40.0) % [place] % (Auto) 7.5 (0.0-15.0) % Eos % (Auto) 0.6 (0.0-7.0) % Baso % (Auto) 0.3 (0.0-1.5) % Neut # (Auto) 6.1 H (1.4-5.7) K/uL Lymph # (Auto) 1.0 (0.6-2.4) K/uL [place] # (Auto) 0.6 (0.0-0.8) K/uL Eos # (Auto) 0.1 (0.0-0.7) K/uL Baso # (Auto) 0.0 (0.0-0.1) K/uL Nucleated RBC % 0.0 /100WBC Nucleated RBCs # 0 K/uL Lactate 1.2 (0.20-2.00) mmol/L Sodium 140 (136-145) mmol/L Potassium 3.7 (3.5-5.1) mmol/L Chloride 105 (98-107) mmol/L Carbon Dioxide 25.1 (21.0-32.0) mmol/L BUN 21 H (7.0-18.0) mg/dL Creatinine 0.9 (0.6-1.0) mg/dL Est Cr Clr Drug Dosing 38.25 mL/min Estimated GFR (MDRD) > 60.0 ml/min Glucose 115 H (74-106) mg/dL Calcium 9.8 (8.5-10.1) mg/dL Total Bilirubin 1.1 H (0.2-1.0) mg/dL AST 35 (15-37) IU/L ALT 32 (14-63) IU/L Alkaline Phosphatase 58 (46-116) U/L Total Protein 6.7 (6.4-8.2) g/dL Albumin 3.9 (3.4-5.0) g/dL Globulin 2.8 (2.6-4.0) g/dL Albumin/Globulin Ratio 1.4 (0.9-1.6) Urine Color Urine Appearance Urine pH (5.0-8.0) Ur Specific [place] (1.001-1.035) Urine Protein (NEGATIVE) mg/dL Urine Glucose (UA) (NEGATIVE) mg/dL Urine Ketones (NEGATIVE) mg/dL Urine Occult Blood (NEGATIVE) Urine Nitrite (NEGATIVE) Urine Bilirubin (NEGATIVE) Urine Urobilinogen (<2.0) EU/dL Ur Leukocyte Esterase (NEGATIVE) Urine RBC (0-2/HPF) Urine WBC (0-5/HPF) Ur Epithelial Cells (NONE-FEW) Amorphous Sediment (NEGATIVE) Urine Bacteria (NEGATIVE) Urine Mucus (NONE-MOD) 08/01/19 Range/Units 23:20 WBC (4.0-11.0) K/uL RBC (4.30-5.90) M/uL Hgb (12.0-16.0) g/dL Hct (36.0-46.0) % MCV (80.0-98.0) fL MCH (27.0-32.0) pg MCHC (31.0-37.0) g/dL RDW Std Deviation (28.0-62.0) fl RDW Coeff of Miracle (11.0-15.0) % Plt Count (150-400) K/uL MPV (7.40-12.00) fL Neut % (Auto) (48.0-80.0) % Lymph % (Auto) (16.0-40.0) % [place] % (Auto) (0.0-15.0) % Eos % (Auto) (0.0-7.0) % Baso % (Auto) (0.0-1.5) % Neut # (Auto) (1.4-5.7) K/uL Lymph # (Auto) (0.6-2.4) K/uL [place] # (Auto) (0.0-0.8) K/uL Eos # (Auto) (0.0-0.7) K/uL Baso # (Auto) (0.0-0.1) K/uL Nucleated RBC % /100WBC Nucleated RBCs # K/uL Lactate (0.20-2.00) mmol/L Sodium (136-145) mmol/L Potassium (3.5-5.1) mmol/L Chloride (98-107) mmol/L Carbon Dioxide (21.0-32.0) mmol/L BUN (7.0-18.0) mg/dL Creatinine (0.6-1.0) mg/dL Est Cr Clr Drug Dosing mL/min Estimated GFR (MDRD) ml/min Glucose (74-106) mg/dL Calcium (8.5-10.1) mg/dL Total Bilirubin (0.2-1.0) mg/dL AST (15-37) IU/L ALT (14-63) IU/L Alkaline Phosphatase (46-116) U/L Total Protein (6.4-8.2) g/dL Albumin (3.4-5.0) g/dL Globulin (2.6-4.0) g/dL Albumin/Globulin Ratio (0.9-1.6) Urine Color YELLOW Urine Appearance CLOUDY Urine pH 8.0 (5.0-8.0) Ur Specific [place] 1.015 (1.001-1.035) Urine Protein NEGATIVE (NEGATIVE) mg/dL Urine Glucose (UA) NEGATIVE (NEGATIVE) mg/dL Urine Ketones NEGATIVE (NEGATIVE) mg/dL Urine Occult Blood MODERATE H (NEGATIVE) Urine Nitrite NEGATIVE (NEGATIVE) Urine Bilirubin NEGATIVE (NEGATIVE) Urine Urobilinogen 0.2 (<2.0) EU/dL Ur Leukocyte Esterase TRACE H (NEGATIVE) Urine RBC 1-3 (0-2/HPF) Urine WBC 2-4 (0-5/HPF) Ur Epithelial Cells FEW (NONE-FEW) Amorphous Sediment HEAVY (NEGATIVE) Urine Bacteria 1+ H (NEGATIVE) Urine Mucus LIGHT (NONE-MOD) Departure - Departure Time of Disposition: 23:43 Disposition: DC/Tfer to Acute Hospital 02 Condition: Good Clinical Impression: Abdominal pain, Volvulus - Discharge Information Forms: ED Department Discharge - My Orders Last 24 Hours: My Active Orders 08/01/19 22:50 Abdomen Pelvis wo Cont [CT] Stat Chest 1V Frontal [CR] Stat 08/01/19 23:20 CULTURE URINE [RM] Stat - Assessment/Plan Last 24 Hours: My Active Orders 08/01/19 22:50 Abdomen Pelvis wo Cont [CT] Stat Chest 1V Frontal [CR] Stat 08/01/19 23:20 CULTURE URINE [RM] Stat
[2019-08-01 23:28] LABS: BLOOD UREA NITROGEN,BUN 21 mg/dL (7.0-18.0); CARBON DIOXIDE,CO2 25.1 mmol/L (21.0-32.0); CHLORIDE,CL 105 mmol/L (98-107); GLUCOSE RANDOM 115 mg/dL (74-106); POTASSIUM,K 3.7 mmol/L (3.5-5.1); SODIUM,NA 140 mmol/L (136-145)
[2019-08-01] MEDS ORDERED: Sodium Chloride 0.9% 500 ML IV SCH (23:45)
--- NOTE | 2019-08-01 23:54 | CR ---
INDICATION: pain CHEST, ONE VIEW An AP radiograph of the chest was performed. Comparison: 09/23/2916. The lungs appear clear and no pleural effusions are identified. The heart remains borderline enlarged. The pulmonary vasculature appears normal, as do the visualized bones. IMPRESSION: No acute intrathoracic abnormality identified. CHICO SUE MD [facility] Dictated by: Luca Sue MD @ 08/01/2019 23:52:14 (Electronically Signed)
[2019-08-01] MEDS ORDERED: Morphine 2 MG/ML Syringe IVPUSH ONE (23:58)
--- NOTE | 2019-08-02 | PCM.CONS ---
H&P History of Present Illness - General Date of Service: 08/01/19 Source of Information: Patient History Limitations: Reports: No Limitations - History of Present Illness Initial Comments - Free Text/Narative: Patient is a 79 year old female who presents with an acute onset of abdominal pain around noon today. She has a PMHx significant for CHF with preserved ejection fraction, atrial fibrillation on Coumadin, HLD, HTN, s/p laparoscopic cholecystectomy and stage IIIC endometrial cancer s/p [facility] in [place]. She denies any infectious contacts recently. She had a normal BM this morning. She denies nausea vomiting, fevers or chills. She suddenly had pain all over her abdomen that then became centered in the RLQ. She felt like it was "gas pain" and tried to have a BM. She passed a small stool. The pain continued to get worse with time and so she presented to the ER. She was hypertensive on arrival. Her physical exam was remarkable for a distended mass in the right lower abdomen with rebound and guarding. Her WBC was normal. Lactate is pending. 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 Right Lower Abdomen Pain Score (Numeric/FACES): 4 - Related Data Allergies/Adverse Reactions: Allergies Allergy/AdvReac Type Severity Reaction Status Date / Time Penicillins Allergy Rash Verified 08/01/19 22:38 Sulfa (Sulfonamide Allergy Abdominal Verified 08/01/19 22:38 Antibiotics) Pain Difficult Intubation Allergy Other Uncoded 08/01/19 22:38 Home Medications: Home Meds Atenolol [Tenormin] 50 mg PO BRK 05/22/14 [History] Calcium Carbonate [Calcium] 1 tab PO BID 05/22/14 [History] Denosumab [Prolia] 1 ml INJECT ASDIRECTED 05/22/14 [History] Fluticasone/Salmeterol [Advair 100-50 Diskus] 1 inh INH BID 05/22/14 [History] amLODIPine Besylate [Amlodipine Besylate] 5 mg PO BRK 05/22/14 [History] atorvaSTATin [Lipitor] 40 mg PO BEDTIME 05/22/14 [History] Furosemide 20 mg PO DAILY 10/09/16 [History] Lisinopril 10 mg PO DAILY 10/09/16 [History] Potassium Chloride 10 meq PO DAILY 10/09/16 [History] Warfarin [Coumadin] 4 mg PO ASDIRECTED 08/01/19 [History] Past Medical History HEENT History: Reports: Cataract, Hard of Hearing, Other (See Below) Other HEENT History: ro[place]a hearing aids, titanium implant to left ear, wears glasses Cardiovascular History: Reports: Heart Failure, High Cholesterol, Hypertension, Other (See Below) Other Cardiovascular History: Aortic valve calcification per Dr. 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) Other OB/BYN History: CA of uterus 2013, chemo, radiation, hysterectomy Musculoskeletal History: Reports: Fracture, Osteoporosis Neurological History: Reports: Neuropathy, Peripheral Psychiatric History: Reports: None Endocrine/Metabolic History: Reports: None Hematologic History: Reports: None Immunologic History: Reports: None Oncologic (Cancer) History: Reports: Uterine Other Oncologic History: endometrial cancer and also found in 1 lymph node, treated with chemo and radiation Dermatologic History: Reports: None - Infectious Disease History Infectious Disease History: Reports: Chicken Pox, Measles, Mumps - Past Surgical History Head Surgeries/Procedures: Reports: None HEENT Surgical History: Reports: Adenoidectomy, Cataract Surgery, Tonsillectomy Cardiovascular Surgical History: Reports: None Respiratory Surgical History: Reports: None GI Surgical History: Reports: Cholecystectomy Female Surgical History: Reports: Hysterectomy Social & Family History - Family History Family Medical History: Noncontributory - Tobacco Use Smoking Status *Q: Never Smoker - Caffeine Use Caffeine Use: Reports: None - Recreational Drug Use Recreational Drug Use: No H&P Review of Systems - Review of Systems: Review Of Systems: Comprehensive ROS is negative, except as noted in HPI. Exam - Exam Exam: See Below - Vital Signs Vital Signs: Last Vital Signs Temp 37.4 C 08/01/19 22:34 Pulse 81 08/01/19 22:34 Resp 18 08/01/19 22:34 BP 169/97 H 08/01/19 22:34 Pulse Ox 96 08/01/19 22:34 Weight: 55.338 kg - Exam Quality Assessment: Supplemental Oxygen General: Alert, Oriented, Severe Distress HEENT: Conjunctiva Clear, Mucosa Moist & [place], Posterior Pharynx Clear Neck: Supple, Trachea Midline Lungs: Clear to Auscultation, Normal Respiratory Effort Cardiovascular: Regular Rate, Regular Rhythm GI/Abdominal Exam: Guarding (RLQ), Rigid (RLQ), Rebound (RLQ), Tender (RLQ) Extremities: Normal Inspection - Patient Data Lab Results Last 24 hrs: Laboratory Results - last 24 hr 08/01/19 08/01/19 08/01/19 Range/Units 22:55 22:55 22:55 WBC 7.76 (4.0-11.0) K/uL RBC 4.06 L (4.30-5.90) M/uL Hgb 13.1 (12.0-16.0) g/dL Hct 37.3 (36.0-46.0) % MCV 91.9 (80.0-98.0) fL MCH 32.3 H (27.0-32.0) pg MCHC 35.1 (31.0-37.0) g/dL RDW Std Deviation 44.2 (28.0-62.0) fl RDW Coeff of Miracle 13 (11.0-15.0) % Plt Count 210 (150-400) K/uL MPV 10.60 (7.40-12.00) fL Neut % (Auto) 78.3 (48.0-80.0) % Lymph % (Auto) 13.3 L (16.0-40.0) % [place] % (Auto) 7.5 (0.0-15.0) % Eos % (Auto) 0.6 (0.0-7.0) % Baso % (Auto) 0.3 (0.0-1.5) % Neut # (Auto) 6.1 H (1.4-5.7) K/uL Lymph # (Auto) 1.0 (0.6-2.4) K/uL [place] # (Auto) 0.6 (0.0-0.8) K/uL Eos # (Auto) 0.1 (0.0-0.7) K/uL Baso # (Auto) 0.0 (0.0-0.1) K/uL Nucleated RBC % 0.0 /100WBC Nucleated RBCs # 0 K/uL Lactate 1.2 (0.20-2.00) mmol/L Sodium 140 (136-145) mmol/L Potassium 3.7 (3.5-5.1) mmol/L Chloride 105 (98-107) mmol/L Carbon Dioxide 25.1 (21.0-32.0) mmol/L BUN 21 H (7.0-18.0) mg/dL Creatinine 0.9 (0.6-1.0) mg/dL Est Cr Clr Drug Dosing 38.25 mL/min Estimated GFR (MDRD) > 60.0 ml/min Glucose 115 H (74-106) mg/dL Calcium 9.8 (8.5-10.1) mg/dL Total Bilirubin 1.1 H (0.2-1.0) mg/dL AST 35 (15-37) IU/L ALT 32 (14-63) IU/L Alkaline Phosphatase 58 (46-116) U/L Total Protein 6.7 (6.4-8.2) g/dL Albumin 3.9 (3.4-5.0) g/dL Globulin 2.8 (2.6-4.0) g/dL Albumin/Globulin Ratio 1.4 (0.9-1.6) Urine Color Urine Appearance Urine pH (5.0-8.0) Ur Specific [place] (1.001-1.035) Urine Protein (NEGATIVE) mg/dL Urine Glucose (UA) (NEGATIVE) mg/dL Urine Ketones (NEGATIVE) mg/dL Urine Occult Blood (NEGATIVE) Urine Nitrite (NEGATIVE) Urine Bilirubin (NEGATIVE) Urine Urobilinogen (<2.0) EU/dL Ur Leukocyte Esterase (NEGATIVE) Urine RBC (0-2/HPF) Urine WBC (0-5/HPF) Ur Epithelial Cells (NONE-FEW) Amorphous Sediment (NEGATIVE) Urine Bacteria (NEGATIVE) Urine Mucus (NONE-MOD) 08/01/19 Range/Units 23:20 WBC (4.0-11.0) K/uL RBC (4.30-5.90) M/uL Hgb (12.0-16.0) g/dL Hct (36.0-46.0) % MCV (80.0-98.0) fL MCH (27.0-32.0) pg MCHC (31.0-37.0) g/dL RDW Std Deviation (28.0-62.0) fl RDW Coeff of Miracle (11.0-15.0) % Plt Count (150-400) K/uL MPV (7.40-12.00) fL Neut % (Auto) (48.0-80.0) % Lymph % (Auto) (16.0-40.0) % [place] % (Auto) (0.0-15.0) % Eos % (Auto) (0.0-7.0) % Baso % (Auto) (0.0-1.5) % Neut # (Auto) (1.4-5.7) K/uL Lymph # (Auto) (0.6-2.4) K/uL [place] # (Auto) (0.0-0.8) K/uL Eos # (Auto) (0.0-0.7) K/uL Baso # (Auto) (0.0-0.1) K/uL Nucleated RBC % /100WBC Nucleated RBCs # K/uL Lactate (0.20-2.00) mmol/L Sodium (136-145) mmol/L Potassium (3.5-5.1) mmol/L Chloride (98-107) mmol/L Carbon Dioxide (21.0-32.0) mmol/L BUN (7.0-18.0) mg/dL Creatinine (0.6-1.0) mg/dL Est Cr Clr Drug Dosing mL/min Estimated GFR (MDRD) ml/min Glucose (74-106) mg/dL Calcium (8.5-10.1) mg/dL Total Bilirubin (0.2-1.0) mg/dL AST (15-37) IU/L ALT (14-63) IU/L Alkaline Phosphatase (46-116) U/L Total Protein (6.4-8.2) g/dL Albumin (3.4-5.0) g/dL Globulin (2.6-4.0) g/dL Albumin/Globulin Ratio (0.9-1.6) Urine Color YELLOW Urine Appearance CLOUDY Urine pH 8.0 (5.0-8.0) Ur Specific [place] 1.015 (1.001-1.035) Urine Protein NEGATIVE (NEGATIVE) mg/dL Urine Glucose (UA) NEGATIVE (NEGATIVE) mg/dL Urine Ketones NEGATIVE (NEGATIVE) mg/dL Urine Occult Blood MODERATE H (NEGATIVE) Urine Nitrite NEGATIVE (NEGATIVE) Urine Bilirubin NEGATIVE (NEGATIVE) Urine Urobilinogen 0.2 (<2.0) EU/dL Ur Leukocyte Esterase TRACE H (NEGATIVE) Urine RBC 1-3 (0-2/HPF) Urine WBC 2-4 (0-5/HPF) Ur Epithelial Cells FEW (NONE-FEW) Amorphous Sediment HEAVY (NEGATIVE) Urine Bacteria 1+ H (NEGATIVE) Urine Mucus LIGHT (NONE-MOD) Result Diagrams: 08/01/19 22:55 08/01/19 22:55 Consult PN Assessment/Plan Procedures: Procedures ASSAY OF AMYLASE (01/21/18) ASSAY OF CREATININE (11/11/16) ASSAY OF LIPASE (04/04/18) ASSAY OF MAGNESIUM (07/13/17) ASSAY OF NATRIURETIC PEPTIDE (03/22/18) ASSAY OF PHOSPHORUS (07/13/17) ASSAY OF SERUM POTASSIUM (03/19/16) ASSAY OF TROPONIN QUANT (07/13/17) ASSAY OF UREA NITROGEN (11/11/16) ASSAY THYROID STIM HORMONE (03/22/18) BILIRUBIN DIRECT (10/14/16) BILIRUBIN TOTAL (10/14/16) BLOOD CULTURE FOR BACTERIA (01/21/18) CARDIOVASCULAR STRESS TEST (06/16/16) CHEMO IV INFUS EACH ADDL SEQ (10/16/14) CHEMO IV INFUSION 1 HR (10/16/14) CHEMO IV INFUSION ADDL HR (10/16/14) CHEST X-RAY 1 VIEW FRONTAL (07/13/17) CHEST X-RAY 2VW FRONTAL&LATL (09/23/16) COMP SCREEN MAMMOGRAM ADD-ON (07/28/16) COMPLETE CBC AUTOMATED (10/08/15) COMPLETE CBC W/AUTO DIFF WBC (03/22/18) COMPREHEN METABOLIC PANEL (03/22/18) CT ABD & PELV W/CONTRAST (12/30/17) CT ABD & PELVIS W/O CONTRAST (07/13/17) CT HEAD/BRAIN W/O DYE (01/21/18) CT THORAX W/DYE (12/30/17) ELECTROCARDIOGRAM TRACING (05/17/19) EMERGENCY DEPT VISIT (01/21/18) EVALUATE PT USE OF INHALER (10/14/16) EXC H-F-NK-SP B9+ZAIN 1.1-2 (12/23/16) HELICOBACTER PYLORI ANTIBODY (08/25/16) HT MUSCLE IMAGE SPECT MULT (06/16/16) HYDRATE IV INFUSION ADD-ON (01/21/18) IIV NO PRSV INCREASED AG IM (06/19/19) IMMUNIZATION ADMIN (05/11/14) IMMUNOASSAY TUMOR CA 125 (11/11/16) LAPAROSCOPIC CHOLECYSTECTOMY (10/14/16) LIPID PANEL (07/13/17) MEDICAL NUTRITION INDIV IN (10/14/16) METABOLIC PANEL TOTAL CA (07/13/17) MRI ABDOMEN W/O & W/DYE (07/13/17) OFFICE/OUTPATIENT VISIT EST (06/19/19) OFFICE/OUTPATIENT VISIT EST (11/28/18) OFFICE/OUTPATIENT VISIT EST (08/08/18) OFFICE/OUTPATIENT VISIT EST (03/22/18) OFFICE/OUTPATIENT VISIT EST (12/17/17) OFFICE/OUTPATIENT VISIT EST (09/23/16) OFFICE/OUTPATIENT VISIT EST (05/11/14) OFFICE/OUTPATIENT VISIT EST (05/02/14) OFFICE/OUTPATIENT VISIT EST (04/12/14) OFFICE/OUTPATIENT VISIT EST (04/12/14) OFFICE/OUTPATIENT VISIT NEW (04/30/16) POLYSOM 6/> YRS 4/> BERTIN (03/29/19) PPSV23 VACC 2 YRS+ SUBQ/IM (05/11/14) PROTHROMBIN TIME (06/19/19) PT EVAL LOW COMPLEX 20 MIN (10/14/16) ROUTINE VENIPUNCTURE (08/01/18) TDAP VACCINE 7 YRS/> IM (05/11/14) THER/PROPH/DIAG INJ IV PUSH (01/21/18) THER/PROPH/DIAG INJ SC/IM (02/13/19) THROMBOPLASTIN TIME PARTIAL (04/01/15) TISSUE EXAM BY PATHOLOGIST (10/14/16) TTE W/DOPPLER COMPLETE (04/04/18) TX/PRO/DX INJ NEW DRUG ADDON (10/16/14) TX/PROPH/DG ADDL SEQ IV INF (10/16/14) ULTRASOUND BREAST COMPLETE (12/24/14) URINALYSIS AUTO W/SCOPE (03/22/18) URINE BACTERIA CULTURE (04/12/14) URINE CULTURE/COLONY COUNT (12/17/17) US EXAM PELVIC COMPLETE (04/16/14) X-RAY EXAM ABDOMEN 1 VIEW (01/21/18) X-RAY EXAM KNEE 4 OR MORE (01/23/14) X-RAY EXAM OF ABDOMEN (08/25/16) X-RAY EXAM OF KNEE 3 (12/26/13) (1) Cecal volvulus SNOMED Code(s): 372177544 Code(s): K56.2 - VOLVULUS (2) CHF (congestive heart failure) SNOMED Code(s): 46917184 Code(s): I50.9 - HEART FAILURE, UNSPECIFIED Qualifiers: Qualified Code(s): I50.9 - Heart failure, unspecified Problem List Initiated/Reviewed/Updated: Yes My Orders Last 24 Hours: My Active Orders 08/01/19 23:45 Sodium Chloride 0.9% [Normal Saline] 500 ml IV .BOLUS Plan: The patient will need surgical management however given her past medical history she will need more resources pre and post operatively than our hospital will be able to provide and I anticipate a greater than three day length of stay. Will transfer her emergently to the ER in [facility]. Dr. Zamora has accepted the patient.
[2019-08-02 00:03] VITALS: BP 168/78; PULSE 80
--- NOTE | 2019-08-02 00:05 | CT ---
INDICATION: RLQ pain. CT ABDOMEN AND PELVIS WITHOUT CONTRAST TECHNIQUE: Multidetector CT imaging was performed through the abdomen and pelvis without intravenous contrast administration. Coronal and sagittal reconstructions were generated. COMPARISON: 12/30/2017 CT abdomen and pelvis. FINDINGS: Lower chest: Minimal bibasilar linear scarring or subsegmental atelectasis, similar to the previous exam. Minimal pericardial effusion. Liver: Within normal limits. Gallbladder and bile ducts: Status post cholecystectomy. No biliary dilation identified. Pancreas: Unremarkable. Spleen: Normal. Adrenals: No nodules or masses. Kidneys, ureters, and urinary bladder: Small right renal cyst. No urinary tract stones or hydronephrosis. No bladder mass or definite wall thickening. Gastrointestinal tract: Very small hiatal hernia. Normal caliber small bowel without wall thickening. Appendix not identified. A distended bowel loops in the upper pelvis is felt to represent the distended cecum, distal to which the ascending colon appears narrowed, with a waist-like appearance (e.g. image 31 of series 203) and mild swirling of mesenteric vessels, likely representing cecal volvulus. An internal hernia could also be considered. No pneumatosis or colon wall thickening is seen. Vascular structures: Mild aortoiliac atherosclerotic calcifications. Peritoneum: No free air, abscess, or significant free fluid. Lymph nodes: No pathologically enlarged nodes identified. Reproductive organs: Status post hysterectomy. No pelvic masses. Bones: Mild spinal degenerative changes. Pectus excavatum. IMPRESSION: 1. 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 2. Nonacute additional findings as detailed above. Results were discussed with Dr. Maxwell at 11:45 p.m. on 08/01/2019. CHCIO SUE MD [employer] [facility] Dictated by Luca Sue MD @ 08/02/2019 12:02:35 AM Dictated by: Luca Sue MD @ 08/02/2019 00:02:58 (Electronically Signed)
== END 2019-08-02 00:25 ==
LOC: MW.ED 22:24
DX: K56.2 Volvulus (principal); I11.0 Hypertensive heart disease with heart failure; I50.9 Heart failure, unspecified; E78.00 Pure hypercholesterolemia, unspecified; J45.909 Unspecified asthma, uncomplicated; Z90.49 Acquired absence of other specified parts of digestive tract; Z88.0 Allergy status to penicillin; Z88.2 Allergy status to sulfonamides; Z91.048 Other nonmedicinal substance allergy status; Z79.899 Other long term (current) drug therapy
CPT/HCPCS: 36415; 71045; 74176; 80053; 81001; 83605; 85025; 87086; 96374; 99285; J2270; J7040; 99284

== ENCOUNTER 2019-08-09 18:38 | Emergency (ER) | payer MEDICARE, BC ==
[2019-08-09] MEDS ORDERED: Sodium Chloride 0.9% 10 ML Syringe FLUSH PRN (18:50)
[2019-08-09] MEDS ORDERED: Sodium Chloride 0.9% 2.5 ML Syringe FLUSH PRN (18:50)
[2019-08-09] MEDS ORDERED: Sodium Chloride 0.9% 1,000 ML IV ONE (19:00)
--- NOTE | 2019-08-09 19:28 | EDM.PDOC ---
ED HPI GENERAL MEDICAL PROBLEM - General Chief Complaint: Gastrointestinal Problem Stated Complaint: BLOOD ON BOWEL Time Seen by Provider: 08/09/19 18:49 Source of Information: Reports: Patient History Limitations: Reports: No Limitations - History of Present Illness INITIAL COMMENTS - FREE TEXT/NARRATIVE: HISTORY AND PHYSICAL: History of present illness: Patient is a 79-year-old female who presents to the ED today with concern of blood in her stool starting yesterday and today following a colon resection. 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 Patient states that she was on warfarin at that time and may help the warfarin and did the surgery the next day. Patient states that she was told to start taking her warfarin again yesterday and has had one dose of warfarin. Patient states she has been on Lovenox since discharge from the hospital. Patient states yesterday and today she has had a moderate amount of blood in her stool has been in the toilet after going to the bathroom. Patient states she called the surgeon in [place] and he had told her to come to the ED to be evaluated. Patient denies any associated symptoms. Patient denies fever, chills, chest pain, shortness of breath, or cough. Denies headache, neck stiff ness, change in vision, syncope, or near syncope. Denies nausea, vomiting, abdominal pain, diarrhea, constipation, or dysuria. Has not noted any blood in urine. Patient has been eating and drinking appropriately. Review of systems: As per history of present illness and below otherwise all systems reviewed and negative. Past medical history: As per history of present illness and as reviewed below otherwise noncontributory. Surgical history: As per history of present illness and as reviewed below otherwise noncontributory. Social history: See social history for further information Family history: As per history of present illness and as reviewed below otherwise noncontributory. Physical exam: General: Patient is alert, oriented, and in no acute distress. Patient laying comfortably on exam table. HEENT: Atraumatic, normocephalic, pupils equal and reactive bilaterally, negative for conjunctival pallor or scleral icterus, mucous membranes moist, TMs normal bilaterally, throat clear, neck supple, nontender, trachea midline. No drooling or trismus noted. No meningeal signs. No hot potato voice noted. Lungs: Clear to auscultation, breath sounds equal bilaterally, chest nontender. Heart: S1S2, regular rate and rhythm without overt murmur Abdomen: Soft, nondistended, nontender. Negative for masses or hepatosplenomegaly. Negative for costovertebral tenderness. Surgical incision consistent with ecent surgical history. No erythema or drianage noted of the incision site. Porter intact without any separation of the incision. Pelvis: Stable nontender. Genitourinary: Deferred. Rectal: Hemoccult positive. Tone intact. No obvious hemorrhoids, fissures, masses or lesions noted. Skin: Intact, warm, dry. No lesions or rashes noted. Extremities: Atraumatic, negative for cords or calf pain. Neurovascular unremarkable. Neuro: Awake, alert, oriented. Cranial nerves II through XII unremarkable. Cerebellum unremarkable. Motor and sensory unremarkable throughout. Exam nonfocal. Notes: Dr. Correa verbally involved in patient care. Dr. Ovalle, General Surgery at [facility], consulted on patient and thoroughly discussed patient's case. Patient had spoke to him earlier in regards to her bloody bowel movements and he instructed her to come to the ED. He states that he is not concerned about the rectal bleeding as this is common after the surgery. He also is not concerned about the fluid collection read on CT scan and states that he will follow this up in his clinic and she does not need to have antibiotics or any intervention for this at this time. He instructed patient to follow-up in the clinic in approximately 1 week. Admission for observation was offered to patient but she declines at this time. All risks versus benefits discussed and as per nurse's understanding. Voices understanding and is agreeable to plan of care. Denies any further questions or concerns at this time. Diagnostics: CBC, CMP, UA, INR, lipase, hemeoccult, abd/pelvic CT, EKG Therapeutics: NS Prescription: Macrobid Impression: Rectal bleeding Fluid collection of anterior abdominal wall Urinary tract infection Plan: 1. Take medication as prescribed. Continue to monitor rectal bleeding as discussed. 2. Follow-up with Dr. Ovalle, General Surgery, as discussed. Return to the ED as needed and as discussed. Definitive disposition and diagnosis as appropriate pending reevaluation and review of above. - Related Data Allergies Allergy/AdvReac Type Severity Reaction Status Date / Time Penicillins Allergy Rash Verified 08/09/19 18:43 Sulfa (Sulfonamide Allergy Abdominal Verified 08/09/19 18:43 Antibiotics) Pain Difficult Intubation Allergy Other Uncoded 08/01/19 22:38 Home Meds: Home Meds Atenolol [Tenormin] 50 mg PO BRK 05/22/14 [History] Calcium Carbonate [Calcium] 1 tab PO BID 05/22/14 [History] Denosumab [Prolia] 1 ml INJECT ASDIRECTED 05/22/14 [History] Fluticasone/Salmeterol [Advair 100-50 Diskus] 1 inh INH BID 05/22/14 [History] amLODIPine Besylate [Amlodipine Besylate] 5 mg PO BRK 05/22/14 [History] atorvaSTATin [Lipitor] 40 mg PO BEDTIME 05/22/14 [History] Furosemide 20 mg PO DAILY 10/09/16 [History] Lisinopril 10 mg PO DAILY 10/09/16 [History] Potassium Chloride 10 meq PO DAILY 10/09/16 [History] Warfarin [Coumadin] 4 mg PO ASDIRECTED 08/01/19 [History] Nitrofurantoin Monohyd/M-Cryst [Macrobid 100 mg Capsule] 100 mg PO BID 5 Days # 10 capsule 08/09/19 [Rx] Past Medical History HEENT History: Reports: Cataract, Hard of Hearing, Other (See Below) Other HEENT History: ro[place]a hearing aids, titanium implant to left ear, wears glasses Cardiovascular History: Reports: Heart Failure, High Cholesterol, Hypertension, Other (See Below) Other Cardiovascular History: Aortic valve calcification per Dr. Garza report Respiratory History: Reports: Asthma, Pneumonia, Recurrent Gastrointestinal History: Reports: Cholelithiasis, Other (See Below) Other Gastrointestinal History: Cecal Volvulus Genitourinary History: Reports: Other (See Below) Other Genitourinary History: UTI once ORDER CHECKER History: Reports: Other (See Below) Other ORDER CHECKER History: CA of uterus 2013, chemo, radiation, hysterectomy Musculoskeletal History: Reports: Fracture, Osteoporosis Neurological History: Reports: Neuropathy, Peripheral Psychiatric History: Reports: None Endocrine/Metabolic History: Reports: None Hematologic History: Reports: None Immunologic History: Reports: None Oncologic (Cancer) History: Reports: Uterine Other Oncologic History: endometrial cancer and also found in 1 lymph node, treated with chemo and radiation Dermatologic History: Reports: None - Infectious Disease History Infectious Disease History: Reports: Chicken Pox, Measles, Mumps - Past Surgical History Head Surgeries/Procedures: Reports: None HEENT Surgical History: Reports: Adenoidectomy, Cataract Surgery, Tonsillectomy Cardiovascular Surgical History: Reports: None Respiratory Surgical History: Reports: None GI Surgical History: Reports: Cholecystectomy, Other (See Below) Other GI Surgeries/Procedures: Right hemicolectomy Female Surgical History: Reports: Hysterectomy Endocrine Surgical History: Reports: None Neurological Surgical History: Reports: None Musculoskeletal Surgical History: Reports: None Oncologic Surgical History: Reports: None Dermatological Surgical History: Reports: None Social & Family History - Family History Family Medical History: Noncontributory - Tobacco Use Smoking Status *Q: Never Smoker Second Hand Smoke Exposure: No - Caffeine Use Caffeine Use: Reports: None - Recreational Drug Use Recreational Drug Use: No ED ROS GENERAL - Review of Systems Review Of Systems: Comprehensive ROS is negative, except as noted in HPI. ED EXAM, GENERAL - Physical Exam Exam: See Below (see dictation) Course - Vital Signs Last Recorded V/S: Last Vital Signs Temp 99.1 F 08/09/19 18:43 Pulse 78 08/09/19 19:30 Resp 18 08/09/19 19:30 BP 141/54 H 08/09/19 19:30 Pulse Ox 98 08/09/19 19:30 - Orders/Labs/Meds Orders: Active Orders 24 hr Category Date Time Status Hemoccult [Fecal Occult Blood Collection] [RC] Care 08/09/19 18:59 Active ASDIRECTED CULTURE URINE [RM] Stat Lab 08/09/19 20:05 Received Sodium Chloride 0.9% [Saline Flush] Med 08/09/19 18:50 Active 10 ml FLUSH ASDIRECTED PRN Sodium Chloride 0.9% [Saline Flush] Med 08/09/19 18:50 Active 2.5 ml FLUSH ASDIRECTED PRN Saline Lock Insert [OM.PC] Stat Oth 08/09/19 18:50 Ordered Medication Orders Sodium Chloride (Saline Flush) 10 ml FLUSH ASDIRECTED PRN PRN Reason: Keep Vein Open Sodium Chloride (Saline Flush) 2.5 ml FLUSH ASDIRECTED PRN PRN Reason: Keep Vein Open Labs: Laboratory Tests 08/09/19 08/09/19 08/09/19 Range/Units 18:55 18:55 19:24 WBC 8.26 (4.0-11.0) K/uL RBC 3.51 L (4.30-5.90) M/uL Hgb 11.1 L (12.0-16.0) g/dL Hct 33.3 L (36.0-46.0) % MCV 94.9 (80.0-98.0) fL MCH 31.6 (27.0-32.0) pg MCHC 33.3 (31.0-37.0) g/dL RDW Std Deviation 47.8 (28.0-62.0) fl RDW Coeff of Miracle 14 (11.0-15.0) % Plt Count 247 (150-400) K/uL MPV 10.60 (7.40-12.00) fL Neut % (Auto) 65.8 (48.0-80.0) % Lymph % (Auto) 16.6 (16.0-40.0) % Stanley % (Auto) 14.2 (0.0-15.0) % Eos % (Auto) 2.9 (0.0-7.0) % Baso % (Auto) 0.5 (0.0-1.5) % Neut # (Auto) 5.4 (1.4-5.7) K/uL Lymph # (Auto) 1.4 (0.6-2.4) K/uL Stanley # (Auto) 1.2 H (0.0-0.8) K/uL Eos # (Auto) 0.2 (0.0-0.7) K/uL Baso # (Auto) 0.0 (0.0-0.1) K/uL Nucleated RBC % 0.0 /100WBC Nucleated RBCs # 0 K/uL INR 1.47 Sodium 140 (136-145) mmol/L Potassium 3.6 (3.5-5.1) mmol/L Chloride 103 (98-107) mmol/L Carbon Dioxide 24.4 (21.0-32.0) mmol/L BUN 15 (7.0-18.0) mg/dL Creatinine 0.9 (0.6-1.0) mg/dL Est Cr Clr Drug Dosing 38.25 mL/min Estimated GFR (MDRD) > 60.0 ml/min Glucose 98 (74-106) mg/dL Calcium 8.8 (8.5-10.1) mg/dL Total Bilirubin 0.7 (0.2-1.0) mg/dL AST 69 H (15-37) IU/L ALT 104 H (14-63) IU/L Alkaline Phosphatase 79 (46-116) U/L Total Protein 7.1 (6.4-8.2) g/dL Albumin 3.5 (3.4-5.0) g/dL Globulin 3.6 (2.6-4.0) g/dL Albumin/Globulin Ratio 1.0 (0.9-1.6) Lipase 216 (73-393) U/L Urine Color Urine Appearance Urine pH (5.0-8.0) Ur Specific [place] (1.001-1.035) Urine Protein (NEGATIVE) mg/dL Urine Glucose (UA) (NEGATIVE) mg/dL Urine Ketones (NEGATIVE) mg/dL Urine Occult Blood (NEGATIVE) Urine Nitrite (NEGATIVE) Urine Bilirubin (NEGATIVE) Urine Urobilinogen (<2.0) EU/dL Ur Leukocyte Esterase (NEGATIVE) Urine RBC (0-2/HPF) Urine WBC (0-5/HPF) Ur Epithelial Cells (NONE-FEW) Urine Bacteria (NEGATIVE) Urine Mucus (NONE-MOD) 08/09/19 Range/Units 20:05 WBC (4.0-11.0) K/uL RBC (4.30-5.90) M/uL Hgb (12.0-16.0) g/dL Hct (36.0-46.0) % MCV (80.0-98.0) fL MCH (27.0-32.0) pg MCHC (31.0-37.0) g/dL RDW Std Deviation (28.0-62.0) fl RDW Coeff of Miracle (11.0-15.0) % Plt Count (150-400) K/uL MPV (7.40-12.00) fL Neut % (Auto) (48.0-80.0) % Lymph % (Auto) (16.0-40.0) % Stanley % (Auto) (0.0-15.0) % Eos % (Auto) (0.0-7.0) % Baso % (Auto) (0.0-1.5) % Neut # (Auto) (1.4-5.7) K/uL Lymph # (Auto) (0.6-2.4) K/uL Stanley # (Auto) (0.0-0.8) K/uL Eos # (Auto) (0.0-0.7) K/uL Baso # (Auto) (0.0-0.1) K/uL Nucleated RBC % /100WBC Nucleated RBCs # K/uL INR Sodium (136-145) mmol/L Potassium (3.5-5.1) mmol/L Chloride (98-107) mmol/L Carbon Dioxide (21.0-32.0) mmol/L BUN (7.0-18.0) mg/dL Creatinine (0.6-1.0) mg/dL Est Cr Clr Drug Dosing mL/min Estimated GFR (MDRD) ml/min Glucose (74-106) mg/dL Calcium (8.5-10.1) mg/dL Total Bilirubin (0.2-1.0) mg/dL AST (15-37) IU/L ALT (14-63) IU/L Alkaline Phosphatase (46-116) U/L Total Protein (6.4-8.2) g/dL Albumin (3.4-5.0) g/dL Globulin (2.6-4.0) g/dL Albumin/Globulin Ratio (0.9-1.6) Lipase (73-393) U/L Urine Color YELLOW Urine Appearance CLEAR Urine pH 6.0 (5.0-8.0) Ur Specific [place] <= 1.005 (1.001-1.035) Urine Protein NEGATIVE (NEGATIVE) mg/dL Urine Glucose (UA) NEGATIVE (NEGATIVE) mg/dL Urine Ketones NEGATIVE (NEGATIVE) mg/dL Urine Occult Blood LARGE H (NEGATIVE) Urine Nitrite NEGATIVE (NEGATIVE) Urine Bilirubin NEGATIVE (NEGATIVE) Urine Urobilinogen 0.2 (<2.0) EU/dL Ur Leukocyte Esterase SMALL H (NEGATIVE) Urine RBC 0-1 (0-2/HPF) Urine WBC 3-5 (0-5/HPF) Ur Epithelial Cells OCCASIONAL (NONE-FEW) Urine Bacteria 1+ H (NEGATIVE) Urine Mucus LIGHT (NONE-MOD) Meds: Medications Generic Name Dose Route Start Last Admin Trade Name Freq PRN Reason Stop Dose Admin Sodium Chloride 10 ml 08/09/19 18:50 Saline Flush FLUSH ASDIRECTED PRN Keep Vein Open Sodium Chloride 2.5 ml 08/09/19 18:50 Saline Flush FLUSH ASDIRECTED PRN Keep Vein Open Discontinued Medications Generic Name Dose Route Start Last Admin Trade Name Freq PRN Reason Stop Dose Admin Sodium Chloride 1,000 mls @ 500 mls/hr 08/09/19 19:00 08/09/19 19:40 Normal Saline IV 08/09/19 20:59 70 mls/hr STAT ONE Infusion Iopamidol 100 ml 08/09/19 19:54 08/09/19 19:54 Isovue Multipack-370 (76%) IVPUSH 08/09/19 19:55 100 ml ONETIME STA Administration Departure - Departure Time of Disposition: 21:29 Disposition: Home, Self-Care 01 Clinical Impression: Rectal bleed Fluid collection at surgical site Qualifiers: Encounter type: initial encounter Qualified Code(s): T88.8XXA - Other specified complications of surgical and medical care, not elsewhere classified, initial encounter Urinary tract infection Qualifiers: Urinary tract infection type: site unspecified Hematuria presence: with hematuria Qualified Code(s): N39.0 - Urinary tract infection, site not specified ; R31.9 - Hematuria, unspecified - Discharge Information Prescriptions: Nitrofurantoin Monohyd/M-Cryst [Macrobid 100 mg Capsule] 100 mg PO BID 5 Days # 10 capsule Referrals: Arelis Zazueta MD [Primary Care Provider] - Forms: ED Department Discharge Additional Instructions: The following information is given to patients seen in the emergency department who are being discharged to home. This information is to outline your options for follow-up care. We provide all patients seen in our emergency department with a follow-up referral. The need for follow-up, as well as the timing and circumstances, are variable depending upon the specifics of your emergency department visit. If you don't have a primary care physician on staff, we will provide you with a referral. We always advise you to contact your personal physician following an emergency department visit to inform them of the circumstance of the visit and for follow-up with them and/or the need for any referrals to a consulting specialist. The emergency department will also refer you to a specialist when appropriate. This referral assures that you have the opportunity for follow-up care with a specialist. All of these measure are taken in an effort to provide you with optimal care, which includes your follow-up. Under all circumstances we always encourage you to contact your private physician who remains a resource for coordinating your care. When calling for follow-up care, please make the office aware that this follow-up is from your recent emergency room visit. If for any reason you are refused follow-up, please contact the [facility] Emergency Department at and asked to speak to the emergency department charge nurse. [facility] [address] [place] [address] [facility] [address] [place] [id number] 1. Take medication as prescribed. Continue to monitor rectal bleeding as discussed. 2. Follow-up with Dr. Ovalle, General Surgery, as discussed. Return to the ED as needed and as discussed. - My Orders Last 24 Hours: My Active Orders 08/09/19 18:50 Sodium Chloride 0.9% [Saline Flush] 10 ml FLUSH ASDIRECTED PRN Sodium Chloride 0.9% [Saline Flush] 2.5 ml FLUSH ASDIRECTED PRN Saline Lock Insert [OM.PC] Stat 08/09/19 18:59 Hemoccult [Fecal Occult Blood Collection] [RC] ASDIRECTED 08/09/19 20:05 CULTURE URINE [RM] Stat - Assessment/Plan Last 24 Hours: My Active Orders 08/09/19 18:50 Sodium Chloride 0.9% [Saline Flush] 10 ml FLUSH ASDIRECTED PRN Sodium Chloride 0.9% [Saline Flush] 2.5 ml FLUSH ASDIRECTED PRN Saline Lock Insert [OM.PC] Stat 08/09/19 18:59 Hemoccult [Fecal Occult Blood Collection] [RC] ASDIRECTED 08/09/19 20:05 CULTURE URINE [RM] Stat
[2019-08-09 19:32] LABS: BLOOD UREA NITROGEN,BUN 15 mg/dL (7.0-18.0); CARBON DIOXIDE,CO2 24.4 mmol/L (21.0-32.0); CHLORIDE,CL 103 mmol/L (98-107); GLUCOSE RANDOM 98 mg/dL (74-106); LIPASE 216 U/L (73-393); POTASSIUM,K 3.6 mmol/L (3.5-5.1); SODIUM,NA 140 mmol/L (136-145)
[2019-08-09] MEDS ORDERED: Iopamidol 755 MG/ML 500 ML Multipack Bottle IVPUSH STA (19:54)
--- NOTE | 2019-08-09 20:44 | CT ---
INDICATION: Colon resection 1 week ago. Blood in stool. TECHNIQUE: CT abdomen and pelvis acquired with 100 cc Isovue 370 IV contrast. Coronal and sagittal reconstructions. COMPARISON: CT abdomen/pelvis without IV contrast 08/01/[address] abdomen/pelvis with IV contrast 12/30/2017. FINDINGS: Interval postoperative changes of the colon with anastomosis in the right lower quadrant. No bowel dilation. No evidence of colonic inflammation. Small amount of free fluid in the pelvis is either reactive or postoperative in nature. No intraperitoneal free air. There is a 2.2 x 2.5 x 3.9 cm peripherally enhancing fluid collection in the midline anterior abdominal wall (series 201, image 66 and series 204, image 77). This collection is subjacent to surgical clay and contains a tiny focus of gas. Abscess is not excluded. Surrounding fat stranding. Few small locules of gas in the deep soft tissues of the right anterior abdominal wall, likely postoperative. Cholecystectomy. The liver, pancreas, and adrenal glands are negative. Spleen size upper limits of normal. Splenules. Hepatic and portal veins are patent. Bilateral renal cysts. Symmetric nephrograms. No hydronephrosis. Air within the bladder is likely related to recent instrumentation. The bladder is otherwise unremarkable. Hysterectomy. Aortoiliac vascular calcifications. No lymphadenopathy. Degenerative changes of the spine. Calcified granuloma right middle lobe. New 4 mm noncalcified pulmonary nodule in the right lower lobe (series 201, image 18). Linear atelectasis or scarring in both lower lobes. New tiny amount of left pleural fluid posterior medially. Mild coronary artery calcifications. Pectus excavatum IMPRESSION: 1. Interval postoperative changes of the colon with anastomosis in the right lower quadrant. No focal intra-abdominal fluid collection or intraperitoneal free air to suggest dehiscence. No other evidence of colonic inflammation. No bowel obstruction. 2. 3.9 cm peripherally enhancing fluid collection containing a tiny focus of gas in the midline anterior abdominal wall subjacent to the surgical clay. Abscess is not excluded. 3. New 4 mm noncalcified pulmonary nodule in the right lower lobe. Please note that all CT scans at this facility use dose modulation, iterative reconstruction, and/or weight-based dosing when appropriate to reduce radiation dose to as low as reasonably achievable. Dictated by Shikha Syed MD @ Aug 09 2019 8:17PM Signed by Dr. Sihkha Syed @ Aug 09 2019 8:41PM
[2019-08-09 21:27] VITALS: BP 153/59; PULSE 77
== END 2019-08-09 21:30 | disposition home or self-care (01) ==
LOC: MW.ED 18:38
DX: K62.5 Hemorrhage of anus and rectum (principal); R18.8 Other ascites; N39.0 Urinary tract infection, site not specified; R31.9 Hematuria, unspecified; I11.0 Hypertensive heart disease with heart failure; I50.9 Heart failure, unspecified; J45.909 Unspecified asthma, uncomplicated; Z88.0 Allergy status to penicillin; E78.00 Pure hypercholesterolemia, unspecified; Z79.01 Long term (current) use of anticoagulants; Z79.899 Other long term (current) drug therapy; Z88.2 Allergy status to sulfonamides; Z91.048 Other nonmedicinal substance allergy status
CPT/HCPCS: 74177; 80053; 81001; 83690; 85025; 85610; 87086; 93005; 99285; J7030; Q9967

== ENCOUNTER 2022-06-18 17:48 | Emergency (ER) | payer MEDICARE, BC ==
[2022-06-18] MEDS ORDERED: Sodium Chloride 0.9% 1,000 ML IV ONE (18:19)
[2022-06-18] MEDS ORDERED: Sodium Chloride 0.9% 10 ML Syringe FLUSH PRN (18:19)
[2022-06-18] MEDS ORDERED: Sodium Chloride 0.9% 2.5 ML Syringe FLUSH PRN (18:19)
[2022-06-18 18:50] LABS: BLOOD UREA NITROGEN,BUN 20 mg/dL (7.0-18.0); CARBON DIOXIDE,CO2 27.1 mmol/L (21.0-32.0); CHLORIDE,CL 104 mmol/L (98-107); GLUCOSE RANDOM 114 mg/dL (74-106); POTASSIUM,K 3.9 mmol/L (3.5-5.1); SODIUM,NA 141 mmol/L (136-145)
[2022-06-18 19:04] LABS: ESTIMATED GFR 64 mL/min (>60)
[2022-06-18] MEDS ORDERED: Meclizine 25 MG Tab PO ONE (19:56)
[2022-06-18 21:21] VITALS: BP 135/57
[2022-06-18 21:22] VITALS: PULSE 93
== END 2022-06-18 21:19 | disposition home or self-care (01) ==
LOC: MW.ED 17:48
DX: R42 Dizziness and giddiness (principal); R79.1 Abnormal coagulation profile; I11.0 Hypertensive heart disease with heart failure; I50.9 Heart failure, unspecified; E78.00 Pure hypercholesterolemia, unspecified; Z88.0 Allergy status to penicillin; Z88.2 Allergy status to sulfonamides; Z79.899 Other long term (current) drug therapy; Z90.49 Acquired absence of other specified parts of digestive tract; Z90.710 Acquired absence of both cervix and uterus
CPT/HCPCS: 36415; 70450; 71045; 80053; 83735; 84484; 85025; 85610; 85730; 96360; 99284; A9270; J7030

== ENCOUNTER 2023-10-04 19:10 | Inpatient (IN) | payer MEDICARE, BC ==
[2023-10-04 19:32] LABS: BASOPHILS ABSOLUTE AUTO 0.08 K/uL (0.00-0.20); BASOPHILS PERCENT AUTO 0.6 % (0.0-1.0); EOSINOPHILS ABSOLUTE AUTO 0.17 K/uL (0.00-0.45); EOSINOPHILS PERCENT AUTO 1.2 % (0.0-6.0); HEMATOCRIT 39.7 % (37.0-47.0); HEMOGLOBIN 13.8 g/dL (12.0-16.0); IMMATURE GRAN ABSOLUTE AUTO 0.07 K/uL (0.00-0.05); IMMATURE GRAN PERCENT AUTO 0.5 % (0.0-0.4); LYMPHOCYTES ABSOLUTE AUTO 1.43 K/uL (1.00-4.80); LYMPHOCYTES PERCENT AUTO 10.2 % (24.0-44.0); MEAN CORPUSCULAR HEMOGLOBIN 31.7 pg (28.0-32.0); MEAN CORPUSCULAR HGB CONC 34.8 g/dL (32.0-36.0); MEAN CORPUSCULAR VOLUME 91.1 fL (83.0-99.0); MEAN PLATELET VOLUME 11.1 fL (9.4-12.3); MONOCYTES PERCENT AUTO 6.4 % (0.0-8.0); NEUTROPHILS ABSOLUTE AUTO 11.38 K/uL (1.80-7.70); NEUTROPHILS PERCENT AUTO 81.1 % (41.0-71.0); PLATELET COUNT,PLT 287 K/uL (150-400); RED BLOOD CELL COUNT 4.36 M/uL (4.10-5.30); WHITE BLOOD CELL COUNT,WBC 14.03 K/uL (3.9-11.3)
[2023-10-04] MEDS: Ondansetron 4 MG/2 ML SDV IVPUSH ONE (19:34)
[2023-10-04] MEDS: Sodium Chloride 0.9% 500 ML IV ONE (19:34)
[2023-10-04 19:57] LABS: INR 2.94 (0.86-1.11); PTT,PARTIAL THROMBOPLSTIN TIME 31.6 SEC (23.9-30.7)
[2023-10-04 20:03] LABS: A/G RATIO 1.3 (0.9-1.6); ALBUMIN 3.9 g/dL (3.4-5.0); BILIRUBIN TOTAL 1.2 mg/dL (0.2-1.0); CALCIUM 9.3 mg/dL (8.5-10.1); CARBON DIOXIDE,CO2 27.2 mmol/L (21.0-32.0); CREATININE 1.2 mg/dL (0.6-1.0); EST CRCL DRUG DOSING (CG) 26.8 mL/min; POTASSIUM,K 3.4 mmol/L (3.5-5.1)
[2023-10-04 21:32] LABS: APPEARANCE,URINE CLEAR; BILIRUBIN,URINE NEGATIVE (NEGATIVE); COLOR,URINE YELLOW; GLUCOSE,URINE NEGATIVE (NEGATIVE); KETONES,URINE TRACE mg/dL (NEGATIVE); LEUKOCYTE ESTERASE,URINE NEGATIVE (NEGATIVE); NITRITE,URINE NEGATIVE (NEGATIVE); OCCULT BLOOD,URINE NEGATIVE (NEGATIVE); PH,URINE 5.5 (5.0-8.0); PROTEIN,URINE NEGATIVE (NEGATIVE); UROBILINOGEN,URINE 0.2 EU/dL (<2.0)
[2023-10-04] MEDS ORDERED: Acetaminophen 325 MG Tab PO PRN (23:28)
[2023-10-05] MEDS: HYDROmorphone 1 MG/ML Syringe IVPUSH PRN (01:00)
[2023-10-05 05:38] LABS: BASOPHILS ABSOLUTE AUTO 0.02 K/uL (0.00-0.20); BASOPHILS PERCENT AUTO 0.2 % (0.0-1.0); HEMATOCRIT 33.4 % (37.0-47.0); HEMOGLOBIN 11.4 g/dL (12.0-16.0); IMMATURE GRAN ABSOLUTE AUTO 0.03 K/uL (0.00-0.05); IMMATURE GRAN PERCENT AUTO 0.3 % (0.0-0.4); LYMPHOCYTES ABSOLUTE AUTO 0.68 K/uL (1.00-4.80); LYMPHOCYTES PERCENT AUTO 6.3 % (24.0-44.0); MEAN CORPUSCULAR HEMOGLOBIN 31.5 pg (28.0-32.0); MEAN CORPUSCULAR HGB CONC 34.1 g/dL (32.0-36.0); MEAN CORPUSCULAR VOLUME 92.3 fL (83.0-99.0); MEAN PLATELET VOLUME 11.1 fL (9.4-12.3); MONOCYTES ABSOLUTE AUTO 0.73 K/uL (0.00-0.80); MONOCYTES PERCENT AUTO 6.7 % (0.0-8.0); NEUTROPHILS ABSOLUTE AUTO 9.37 K/uL (1.80-7.70); NEUTROPHILS PERCENT AUTO 86.5 % (41.0-71.0); PLATELET COUNT,PLT 198 K/uL (150-400); RED BLOOD CELL COUNT 3.62 M/uL (4.10-5.30); WHITE BLOOD CELL COUNT,WBC 10.83 K/uL (3.9-11.3)
[2023-10-05 05:53] LABS: INR 2.37 (0.86-1.11)
[2023-10-05 05:57] LABS: CALCIUM 8.6 mg/dL (8.5-10.1); CARBON DIOXIDE,CO2 27.7 mmol/L (21.0-32.0); EST CRCL DRUG DOSING (CG) 32.16 mL/min; POTASSIUM,K 3.6 mmol/L (3.5-5.1)
[2023-10-05] MEDS ORDERED: Albuterol/Ipratropium 3.0-0.5 MG/3 ML Neb Soln NEB PRN (07:29)
[2023-10-05] MEDS: Ondansetron 4 MG/2 ML SDV IVPUSH PRN (07:53)
[2023-10-05] MEDS ORDERED: FLECAINIDE 50 MG PO SCH (09:00)
[2023-10-05] MEDS: Furosemide 20 MG Tab PO SCH (09:20)
[2023-10-05] MEDS: amLODIPine 5 MG Tab PO SCH (09:21)
[2023-10-05] MEDS: Atenolol 25 MG Tab PO SCH (09:23)
[2023-10-05] MEDS: Lisinopril 10 MG Tab PO SCH (09:23)
[2023-10-05] MEDS: Formoterol/Mometasone 100-5 MCG 8.8 GM Inhaler INH SCH (09:24)
[2023-10-05] MEDS: Flecainide 100 MG Tab PO SCH (10:38)
[2023-10-05 17:00] LABS: INR 1.54 (0.86-1.11)
[2023-10-05] MEDS: atorvaSTATin 40 MG Tab PO SCH (20:29)
[2023-10-06 06:11] LABS: BASOPHILS ABSOLUTE AUTO 0.06 K/uL (0.00-0.20); BASOPHILS PERCENT AUTO 0.6 % (0.0-1.0); EOSINOPHILS ABSOLUTE AUTO 0.07 K/uL (0.00-0.45); EOSINOPHILS PERCENT AUTO 0.7 % (0.0-6.0); HEMATOCRIT 31.4 % (37.0-47.0); HEMOGLOBIN 10.7 g/dL (12.0-16.0); IMMATURE GRAN ABSOLUTE AUTO 0.03 K/uL (0.00-0.05); IMMATURE GRAN PERCENT AUTO 0.3 % (0.0-0.4); LYMPHOCYTES ABSOLUTE AUTO 1.25 K/uL (1.00-4.80); LYMPHOCYTES PERCENT AUTO 12.2 % (24.0-44.0); MEAN CORPUSCULAR HEMOGLOBIN 31.8 pg (28.0-32.0); MEAN CORPUSCULAR HGB CONC 34.1 g/dL (32.0-36.0); MEAN CORPUSCULAR VOLUME 93.2 fL (83.0-99.0); MEAN PLATELET VOLUME 11.4 fL (9.4-12.3); MONOCYTES ABSOLUTE AUTO 1.08 K/uL (0.00-0.80); MONOCYTES PERCENT AUTO 10.5 % (0.0-8.0); NEUTROPHILS ABSOLUTE AUTO 7.79 K/uL (1.80-7.70); NEUTROPHILS PERCENT AUTO 75.7 % (41.0-71.0); PLATELET COUNT,PLT 161 K/uL (150-400); RED BLOOD CELL COUNT 3.37 M/uL (4.10-5.30); WHITE BLOOD CELL COUNT,WBC 10.28 K/uL (3.9-11.3)
[2023-10-06 06:28] LABS: INR 1.18 (0.86-1.11)
[2023-10-06 06:38] LABS: CALCIUM 8.3 mg/dL (8.5-10.1); EST CRCL DRUG DOSING (CG) 32.16 mL/min; POTASSIUM,K 3.4 mmol/L (3.5-5.1)
[2023-10-06] MEDS: Potassium Chloride 20 MEQ Tab.ER PO ONE (08:01)
[2023-10-06] MEDS: Sodium Chloride 0.9% 1,000 ML IV SCH (08:07)
[2023-10-06] MEDS ORDERED: ceFAZolin 1 GM in Sodium Chloride 0.9% 50 ML IV SCH ×2 (11:00→20:00)
[2023-10-06] MEDS ORDERED: Tranexamic Acid IN NACL,ISO-OS 1,000 MG in Premix Bag 1 BAG IV SCH (11:00)
[2023-10-06] MEDS ORDERED: propofoL 100 ML ONE (11:24)
[2023-10-06] MEDS ORDERED: Ondansetron 4 MG/2 ML SDV ONE (11:31)
[2023-10-06] MEDS ORDERED: fentaNYL 100 MCG/2 ML SDV ONE (11:31)
[2023-10-06] MEDS ORDERED: Phenylephrine HCl 0.5 MG/5 ML AMP ONE ×2 (11:31→12:34)
[2023-10-06] MEDS ORDERED: Phenylephrine 1% 10 MG/ML SDV ONE (12:34)
[2023-10-06] MEDS ORDERED: Tranexamic Acid 1,000 MG/10 ML Vial ONE (12:35)
[2023-10-06] MEDS ORDERED: ePHEDrine 50 MG/ML SDV ONE (12:35)
[2023-10-06] MEDS ORDERED: ceFAZolin 1 GM Vial ONE (12:56)
[2023-10-06] MEDS ORDERED: Metoclopramide 10 MG/2 ML SDV ONE (13:02)
[2023-10-06] MEDS ORDERED: droPERidol 5 MG/2 ML SDV ONE (13:02)
[2023-10-06] MEDS ORDERED: Magnesium Sulfate (4.06 MEQ/ML) 5 GM/10 ML SDV ONE (13:17)
[2023-10-06] MEDS ORDERED: fentaNYL 50 MCG/ML SDV IVPUSH PRN (13:24)
[2023-10-06] MEDS ORDERED: HYDROmorphone 1 MG/ML Syringe IVPUSH PRN (13:24)
[2023-10-06] MEDS ORDERED: Naloxone 0.4 MG/ML SDV IVPUSH PRN (13:24)
[2023-10-06] MEDS ORDERED: Metoclopramide 10 MG/2 ML SDV IVPUSH PRN (13:24)
[2023-10-06] MEDS ORDERED: Albuterol 0.083% 2.5 MG/3 ML Neb Soln NEB PRN (13:24)
[2023-10-06] MEDS ORDERED: Morphine 2 MG/ML SYRINGE IVPUSH PRN (13:24)
[2023-10-06] MEDS ORDERED: ePHEDrine 50 MG/ML SDV IVPUSH PRN (13:24)
[2023-10-06] MEDS ORDERED: Ondansetron 4 MG/2 ML SDV IVPUSH PRN (13:24)
[2023-10-06] MEDS ORDERED: droPERidol 5 MG/2 ML SDV IVPUSH PRN (13:24)
[2023-10-06] MEDS: Acetaminophen 325 MG Tab PO SCH (17:05)
[2023-10-06] MEDS: Warfarin Sliding Scale PO SCH (18:00)
[2023-10-06] MEDS: Heparin Sodium 5,000 Units/ML Vial SUBCUT SCH (18:11)
[2023-10-06] MEDS: Warfarin 2 MG Tab PO SCH (18:12)
[2023-10-06] MEDS: ceFAZolin 1 GM in Sodium Chloride 0.9% 50 ML IV SCH (22:40)
[2023-10-07 06:07] LABS: BASOPHILS ABSOLUTE AUTO 0.04 K/uL (0.00-0.20); BASOPHILS PERCENT AUTO 0.5 % (0.0-1.0); EOSINOPHILS ABSOLUTE AUTO 0.13 K/uL (0.00-0.45); EOSINOPHILS PERCENT AUTO 1.7 % (0.0-6.0); HEMATOCRIT 23.3 % (37.0-47.0); HEMOGLOBIN 8.3 g/dL (12.0-16.0); IMMATURE GRAN ABSOLUTE AUTO 0.04 K/uL (0.00-0.05); IMMATURE GRAN PERCENT AUTO 0.5 % (0.0-0.4); LYMPHOCYTES PERCENT AUTO 15.7 % (24.0-44.0); MEAN CORPUSCULAR HEMOGLOBIN 32.2 pg (28.0-32.0); MEAN CORPUSCULAR HGB CONC 35.6 g/dL (32.0-36.0); MEAN CORPUSCULAR VOLUME 90.3 fL (83.0-99.0); MEAN PLATELET VOLUME 11.5 fL (9.4-12.3); MONOCYTES PERCENT AUTO 11.8 % (0.0-8.0); NEUTROPHILS ABSOLUTE AUTO 5.31 K/uL (1.80-7.70); NEUTROPHILS PERCENT AUTO 69.8 % (41.0-71.0); NRBC ABSOLUTE 0.02 K/uL (0.00-0.02); NRBC PERCENT 0.3 /100WBC (0.0-0.2); PLATELET COUNT,PLT 117 K/uL (150-400); RED BLOOD CELL COUNT 2.58 M/uL (4.10-5.30); WHITE BLOOD CELL COUNT,WBC 7.62 K/uL (3.9-11.3)
[2023-10-07 06:20] LABS: INR 1.19 (0.86-1.11)
[2023-10-07 06:28] LABS: CALCIUM 7.8 mg/dL (8.5-10.1); CARBON DIOXIDE,CO2 24.9 mmol/L (21.0-32.0); CREATININE 0.8 mg/dL (0.6-1.0); EST CRCL DRUG DOSING (CG) 40.21 mL/min; POTASSIUM,K 3.8 mmol/L (3.5-5.1)
[2023-10-07] MEDS: Warfarin 2 MG Tab PO SCH (14:38)
[2023-10-07] MEDS: traMADol 50 MG Tab PO PRN (16:37)
[2023-10-07 17:02] LABS: HEMATOCRIT 25.7 % (37.0-47.0)
[2023-10-08 06:05] LABS: BASOPHILS ABSOLUTE AUTO 0.02 K/uL (0.00-0.20); BASOPHILS PERCENT AUTO 0.2 % (0.0-1.0); HEMATOCRIT 22.5 % (37.0-47.0); HEMOGLOBIN 7.8 g/dL (12.0-16.0); IMMATURE GRAN ABSOLUTE AUTO 0.04 K/uL (0.00-0.05); IMMATURE GRAN PERCENT AUTO 0.4 % (0.0-0.4); LYMPHOCYTES ABSOLUTE AUTO 1.01 K/uL (1.00-4.80); LYMPHOCYTES PERCENT AUTO 10.4 % (24.0-44.0); MEAN CORPUSCULAR HEMOGLOBIN 31.6 pg (28.0-32.0); MEAN CORPUSCULAR HGB CONC 34.7 g/dL (32.0-36.0); MEAN CORPUSCULAR VOLUME 91.1 fL (83.0-99.0); MEAN PLATELET VOLUME 11.4 fL (9.4-12.3); MONOCYTES ABSOLUTE AUTO 1.02 K/uL (0.00-0.80); MONOCYTES PERCENT AUTO 10.5 % (0.0-8.0); NEUTROPHILS ABSOLUTE AUTO 7.48 K/uL (1.80-7.70); NEUTROPHILS PERCENT AUTO 77.5 % (41.0-71.0); PLATELET COUNT,PLT 142 K/uL (150-400); RED BLOOD CELL COUNT 2.47 M/uL (4.10-5.30); WHITE BLOOD CELL COUNT,WBC 9.67 K/uL (3.9-11.3)
[2023-10-08 06:25] LABS: INR 1.45 (0.86-1.11)
[2023-10-08 06:34] LABS: CALCIUM 7.9 mg/dL (8.5-10.1); CARBON DIOXIDE,CO2 26.6 mmol/L (21.0-32.0); CREATININE 0.7 mg/dL (0.6-1.0); EST CRCL DRUG DOSING (CG) 45.95 mL/min; POTASSIUM,K 3.8 mmol/L (3.5-5.1)
[2023-10-08] MEDS: Warfarin 2 MG Tab PO SCH (13:45)
[2023-10-09 06:04] LABS: BASOPHILS ABSOLUTE AUTO 0.05 K/uL (0.00-0.20); BASOPHILS PERCENT AUTO 0.7 % (0.0-1.0); EOSINOPHILS ABSOLUTE AUTO 0.34 K/uL (0.00-0.45); EOSINOPHILS PERCENT AUTO 4.8 % (0.0-6.0); HEMATOCRIT 22.5 % (37.0-47.0); HEMOGLOBIN 7.6 g/dL (12.0-16.0); IMMATURE GRAN ABSOLUTE AUTO 0.04 K/uL (0.00-0.05); IMMATURE GRAN PERCENT AUTO 0.6 % (0.0-0.4); LYMPHOCYTES ABSOLUTE AUTO 1.03 K/uL (1.00-4.80); LYMPHOCYTES PERCENT AUTO 14.6 % (24.0-44.0); MEAN CORPUSCULAR HEMOGLOBIN 31.4 pg (28.0-32.0); MEAN CORPUSCULAR HGB CONC 33.8 g/dL (32.0-36.0); MEAN PLATELET VOLUME 11.5 fL (9.4-12.3); MONOCYTES ABSOLUTE AUTO 0.69 K/uL (0.00-0.80); MONOCYTES PERCENT AUTO 9.8 % (0.0-8.0); NEUTROPHILS ABSOLUTE AUTO 4.92 K/uL (1.80-7.70); NEUTROPHILS PERCENT AUTO 69.5 % (41.0-71.0); PLATELET COUNT,PLT 144 K/uL (150-400); RED BLOOD CELL COUNT 2.42 M/uL (4.10-5.30); WHITE BLOOD CELL COUNT,WBC 7.07 K/uL (3.9-11.3)
[2023-10-09 06:17] LABS: INR 2.23 (0.86-1.11)
[2023-10-09 06:33] LABS: CALCIUM 8.1 mg/dL (8.5-10.1); CARBON DIOXIDE,CO2 27.3 mmol/L (21.0-32.0); CREATININE 0.7 mg/dL (0.6-1.0); EST CRCL DRUG DOSING (CG) 45.95 mL/min; POTASSIUM,K 3.7 mmol/L (3.5-5.1)
[2023-10-09] MEDS: Warfarin 2 MG Tab PO ONE ×2 (18:36→18:37)
[2023-10-10 06:09] LABS: BASOPHILS ABSOLUTE AUTO 0.03 K/uL (0.00-0.20); BASOPHILS PERCENT AUTO 0.4 % (0.0-1.0); EOSINOPHILS ABSOLUTE AUTO 0.36 K/uL (0.00-0.45); EOSINOPHILS PERCENT AUTO 5.3 % (0.0-6.0); HEMOGLOBIN 7.2 g/dL (12.0-16.0); IMMATURE GRAN ABSOLUTE AUTO 0.04 K/uL (0.00-0.05); IMMATURE GRAN PERCENT AUTO 0.6 % (0.0-0.4); LYMPHOCYTES ABSOLUTE AUTO 1.23 K/uL (1.00-4.80); LYMPHOCYTES PERCENT AUTO 18.2 % (24.0-44.0); MEAN CORPUSCULAR HEMOGLOBIN 31.9 pg (28.0-32.0); MEAN CORPUSCULAR HGB CONC 34.3 g/dL (32.0-36.0); MEAN CORPUSCULAR VOLUME 92.9 fL (83.0-99.0); MEAN PLATELET VOLUME 10.8 fL (9.4-12.3); MONOCYTES ABSOLUTE AUTO 0.79 K/uL (0.00-0.80); MONOCYTES PERCENT AUTO 11.7 % (0.0-8.0); NEUTROPHILS ABSOLUTE AUTO 4.29 K/uL (1.80-7.70); NEUTROPHILS PERCENT AUTO 63.8 % (41.0-71.0); PLATELET COUNT,PLT 186 K/uL (150-400); RED BLOOD CELL COUNT 2.26 M/uL (4.10-5.30); WHITE BLOOD CELL COUNT,WBC 6.74 K/uL (3.9-11.3)
[2023-10-10 06:28] LABS: CREATININE 0.8 mg/dL (0.6-1.0); EST CRCL DRUG DOSING (CG) 40.21 mL/min; POTASSIUM,K 3.5 mmol/L (3.5-5.1)
[2023-10-10 18:08] LABS: HEMATOCRIT 30.4 % (37.0-47.0); HEMOGLOBIN 10.3 g/dL (12.0-16.0)
[2023-10-10 18:21] LABS: INR 2.65 (0.86-1.11)
[2023-10-10] MEDS: Warfarin 2 MG Tab PO ONE (20:40)
[2023-10-11 06:13] LABS: BASOPHILS ABSOLUTE AUTO 0.05 K/uL (0.00-0.20); BASOPHILS PERCENT AUTO 0.7 % (0.0-1.0); EOSINOPHILS PERCENT AUTO 4.1 % (0.0-6.0); HEMATOCRIT 29.8 % (37.0-47.0); IMMATURE GRAN ABSOLUTE AUTO 0.09 K/uL (0.00-0.05); IMMATURE GRAN PERCENT AUTO 1.2 % (0.0-0.4); LYMPHOCYTES ABSOLUTE AUTO 1.22 K/uL (1.00-4.80); LYMPHOCYTES PERCENT AUTO 16.7 % (24.0-44.0); MEAN CORPUSCULAR HEMOGLOBIN 31.3 pg (28.0-32.0); MEAN CORPUSCULAR HGB CONC 33.6 g/dL (32.0-36.0); MEAN CORPUSCULAR VOLUME 93.4 fL (83.0-99.0); MEAN PLATELET VOLUME 10.6 fL (9.4-12.3); MONOCYTES ABSOLUTE AUTO 0.79 K/uL (0.00-0.80); MONOCYTES PERCENT AUTO 10.8 % (0.0-8.0); NEUTROPHILS ABSOLUTE AUTO 4.86 K/uL (1.80-7.70); NEUTROPHILS PERCENT AUTO 66.5 % (41.0-71.0); PLATELET COUNT,PLT 203 K/uL (150-400); RED BLOOD CELL COUNT 3.19 M/uL (4.10-5.30); WHITE BLOOD CELL COUNT,WBC 7.31 K/uL (3.9-11.3)
[2023-10-11 06:26] LABS: CALCIUM 8.5 mg/dL (8.5-10.1); CARBON DIOXIDE,CO2 27.4 mmol/L (21.0-32.0); CREATININE 0.8 mg/dL (0.6-1.0); EST CRCL DRUG DOSING (CG) 40.21 mL/min; POTASSIUM,K 3.7 mmol/L (3.5-5.1)
[2023-10-11 06:30] LABS: INR 2.32 (0.86-1.11)
[2023-10-11] MEDS: Atenolol 25 MG Tab PO SCH (11:15)
[2023-10-11] MEDS: Furosemide 40 MG Tab PO SCH (12:37)
[2023-10-11] MEDS: Warfarin 2 MG Tab PO SCH (13:42)
[2023-10-12] MEDS ORDERED: Potassium Chloride 20 MEQ Tab.ER PO ONE ×2 (07:30→08:30)
[2023-10-12] MEDS: Potassium Chloride 20 MEQ Tab.ER ONE (10:00)
[2023-10-12 11:13] LABS: CALCIUM 8.3 mg/dL (8.5-10.1); CARBON DIOXIDE,CO2 26.2 mmol/L (21.0-32.0); CREATININE 0.9 mg/dL (0.6-1.0); EST CRCL DRUG DOSING (CG) 35.74 mL/min; POTASSIUM,K 3.4 mmol/L (3.5-5.1)
[2023-10-12 12:04] LABS: BASOPHILS ABSOLUTE AUTO 0.04 K/uL (0.00-0.20); BASOPHILS PERCENT AUTO 0.7 % (0.0-1.0); EOSINOPHILS ABSOLUTE AUTO 0.17 K/uL (0.00-0.45); EOSINOPHILS PERCENT AUTO 2.8 % (0.0-6.0); HEMATOCRIT 28.3 % (37.0-47.0); HEMOGLOBIN 9.5 g/dL (12.0-16.0); IMMATURE GRAN ABSOLUTE AUTO 0.11 K/uL (0.00-0.05); IMMATURE GRAN PERCENT AUTO 1.8 % (0.0-0.4); LYMPHOCYTES ABSOLUTE AUTO 1.26 K/uL (1.00-4.80); LYMPHOCYTES PERCENT AUTO 20.8 % (24.0-44.0); MEAN CORPUSCULAR HEMOGLOBIN 31.9 pg (28.0-32.0); MEAN CORPUSCULAR HGB CONC 33.6 g/dL (32.0-36.0); MEAN PLATELET VOLUME 10.4 fL (9.4-12.3); MONOCYTES ABSOLUTE AUTO 0.71 K/uL (0.00-0.80); MONOCYTES PERCENT AUTO 11.7 % (0.0-8.0); NEUTROPHILS ABSOLUTE AUTO 3.77 K/uL (1.80-7.70); NEUTROPHILS PERCENT AUTO 62.2 % (41.0-71.0); PLATELET COUNT,PLT 203 K/uL (150-400); RED BLOOD CELL COUNT 2.98 M/uL (4.10-5.30); WHITE BLOOD CELL COUNT,WBC 6.06 K/uL (3.9-11.3)
[2023-10-12 12:06] VITALS: BP 142/65; PULSE 76
== END 2023-10-12 10:50 | DRG 481 ==
LOC: MW.ED 19:10 → MW.MS 21:06 → OBSVTOIN 21:06 → INTOOBSV 21:06
PROVIDERS: ADMIT Internal Medicine; ATTEND Internal Medicine
PROC: 0QS704Z Reposition Left Upper Femur with Internal Fixation Device, Open Approach (ICD-10-PCS; principal; 2023-10-06 11:30)
DX: S72.142A Displaced intertrochanteric fracture of left femur, initial encounter for closed fracture (principal); C77.9 Secondary and unspecified malignant neoplasm of lymph node, unspecified; I50.9 Heart failure, unspecified; I50.32 Chronic diastolic (congestive) heart failure; I48.0 Paroxysmal atrial fibrillation; J45.909 Unspecified asthma, uncomplicated; Z66 Do not resuscitate; I11.0 Hypertensive heart disease with heart failure; C54.1 Malignant neoplasm of endometrium; Z91.048 Other nonmedicinal substance allergy status; W01.0XXA Fall on same level from slipping, tripping and stumbling without subsequent striking against object, initial encounter; R79.1 Abnormal coagulation profile; H91.90 Unspecified hearing loss, unspecified ear; E78.00 Pure hypercholesterolemia, unspecified; M81.0 Age-related osteoporosis without current pathological fracture; G62.9 Polyneuropathy, unspecified; Z98.49 Cataract extraction status, unspecified eye; Y92.098 Other place in other non-institutional residence as the place of occurrence of the external cause; Z90.710 Acquired absence of both cervix and uterus; Z90.89 Acquired absence of other organs; Z79.899 Other long term (current) drug therapy; Z79.890 Hormone replacement therapy; Z88.0 Allergy status to penicillin; Z88.2 Allergy status to sulfonamides; Z88.8 Allergy status to other drugs, medicaments and biological substances; Z98.890 Other specified postprocedural states; Z79.01 Long term (current) use of anticoagulants; Z90.49 Acquired absence of other specified parts of digestive tract; Z87.440 Personal history of urinary (tract) infections; Z87.01 Personal history of pneumonia (recurrent)
CPT/HCPCS: 36415; 73552; 80053; 85025; 85610; 85730; 93005; 96361; 96374; 99285; J2405; J7040; 01230; 36430; 76000; 76000-26; 80048; 81003; 85014; 85018; 86850; 86900; 86901; 86920; 87324; 93010; 97110-GP; 97163-GP; 97166-GO; 97530-GP; 99100; A9270-GY; C1713; C1769; J0690; J1170; J1644; J1790; J2371; J2704; J2765; J3010; J3430; J3475; J3490; J7030; P9016